=== PATIENT | male | born 1975 | race Caucasian/White ===

== ENCOUNTER 2020-08-02 10:10 | Outpatient (REF) | payer MEDICAID, SELFPAY | END 2020-08-02 10:11 | disposition home or self-care (01) | LOC: HO.LAB 10:10 | PROVIDERS: Visit Provider Internal Medicine | DX: Z20.822 Contact with and (suspected) exposure to COVID-19 (principal) | CPT/HCPCS: 36415; C9803; U0003 ==

== ENCOUNTER 2020-08-02 11:36 | Emergency (ER) | payer MEDICAID, SELFPAY ==
[2020-08-02 12:55] VITALS: BP 133/69; PULSE 68; RESP 14; TEMP 36; O2SAT 99
--- NOTE | 2020-08-02 13:20 | ED.NAVMDI ---
HPI - Nausea/Vomiting/Diarrhea General Chief complaint: Nausea/Vomiting/Diarrhea Stated complaint: covid symptoms Time Seen by Provider: 08/02/20 12:57 Source: patient Mode of arrival: ambulatory Limitations: no limitations History of Present Illness MD elicited complaint: nausea and vomiting Pertinent past history: other (COVID exposure) Onset (ago): day(s) (4) Description of vomiting: food contents and watery Associated nausea: Yes Associated abdominal pain: No Severity: moderate Exacerbating factors: eating Relieving factors: none Context: sick contacts (daughter has covid similar symptoms, girlfriend has similar symptoms) Associated symptoms: cough, fever/chills, loss of appetite, malaise and nausea/vomiting Related Data Previous Rx's Medication Instructions Recorded ondansetron 4 mg PO Q8H PRN #20 tab 08/02/20 Allergies Allergy/AdvReac Type Severity Reaction Status Date / Time No Known Allergies Allergy Unverified 04/08/20 14:50 [No Known Allergies*] Review of Systems Review of Systems: Constitutional : No Weight loss, No Fever, No Chills ENT/Mouth : No sore throat, No Rhinorrhea Eyes: No Swelling, No Redness Cardiovascular : No Chest Pain, No SOB, NoEdema Respiratory : No Cough, No Sputum, No Wheezing Gastrointestinal : Positive Nausea, Positive Vomiting, positive Diarrhea, no abdominal Pain, No Hematochezia, No Melena Genitourinary : No Dysuria, No Urinary Frequency, No Hematuria, No Urgency Musculoskeletal : No joint pain, No Myalgias, No Joint Swelling Skin : No Skin Lesions, No rash Neuro : No Weakness, No Numbness, No Dizziness, No Headache Psych : No Anxiety/Panic, No Depression Heme/Lymph: No Bruising, No Lymphadenopathy Endocrine : No Polyuria, No Polydipsia All other systems reviewed and are negative. Gastrointestinal: Gastrointestinal: Reports nausea PMFSH Past Medical History Attestation statement: The following information was validated with the patient. Medical History Substance abuse Social History Social History Smoking Status: Current every day smoker Use of substances other than those prescribed or required for medical reasons: Yes Advance Directives: No Advance Directives Information Provided: No Physical Exam Vital Signs: Vital Signs: Last Vital Signs Temp 96.8 F 08/02/20 12:55 Pulse 68 08/02/20 12:55 Resp 14 08/02/20 12:55 BP 133/69 08/02/20 12:55 Pulse Ox 99 08/02/20 12:55 Appearance: Alert. Oriented X3. No acute distress. Eyes: Pupils equal, round and reactive to light. ENT: Pharynx normal. Neck: Normal inspection. Neck supple. CVS: Normal heart rate and rhythm. Pulses normal. Respiratory: No respiratory distress. Breath sounds normal. Abdomen: Soft and non-tender. Skin: Skin warm and dry. Normal skin color. Normal skin turgor. Extremities: No lower extremity edema. No calf ttp Neuro: Oriented X 3. No motor deficit. No sensory deficit. MDM - Nausea/Vomiting/Diarrhea MDM Narrative Medical decision making narrative: 45 yo male with no sig history will need labs, gentle hydration overall not toxic, pending COVID swab already Discharge Plan Discharge Clinical Impression: Vomiting Qualifiers: Vomiting type: unspecified Vomiting Intractability: non-intractable Nausea presence: with nausea Qualified Code(s): R11.2 - Nausea with vomiting, unspecified Patient Disposition: Home, Self-Care Instructions: Acute Nausea and Vomiting (ED) Additional Instructions: return to ED for any worsening symptoms or concerns you were tested for COVID we will call you with results in 2 to 4 days, wear a mask, socially distance Prescriptions: New ondansetron 4 mg tablet,disintegrating 4 mg PO Q8H PRN (Reason: nausea and vomiting) Qty: 20 RF: 0
[2020-08-02 14:36] VITALS: BP 170/97; PULSE 92; RESP 18; TEMP 36.1; O2SAT 99; BMI 30.5
[2020-08-02] MEDS: 0.9 % Sodium Chloride 1,000 ML 999 ML IVCONT ×2 (14:50→16:09)
[2020-08-02 15:05] LABS: Basophils Percent Auto 0.2 % (0-2); Hemoglobin 19.5 g/dl (14.0-18.0); Imm Gran Abs Auto 0.05 X10*3/uL (0.00-0.03); Imm Gran Pct Auto 0.4 % (0.0-0.4); Lymphocytes Absolute Auto 0.7 X10*3/uL (1.2-4.9); Lymphocytes Percent Auto 5.3 % (20-40); MANUAL DIFF FLAG SCAN; Mean Corpuscular HGB Conc 35.2 g/dl (31.0-36.0); Mean Corpuscular Hemoglobin 30.5 pg (27.0-33.0); Mean Corpuscular Volume 86.7 fL (80-98); Mean Platelet Volume 10.3 fL (9.4-12.4); Monocytes Absolute Auto 0.8 X10*3/uL (0.1-1.2); Monocytes Percent Auto 6.8 % (2-11); Neutrophils Absolute Auto 10.8 X10*3/uL (2.0-8.3); Neutrophils Percent Auto 87.3 % (45-73); Platelet Count 446 X10*3/uL (160-400); Red Blood Count 6.39 X10*6/uL (4.60-5.80); Red Cell Distribution Width 12.3 % (11.0-16.0); SCAN SMEAR FLAG 1; White Blood Count 12.4 X10*3/uL (4.8-10.8)
[2020-08-02 15:16] LABS: Hematocrit 55.4 % (42-52)
[2020-08-02 15:33] VITALS: BP 162/60; PULSE 88; RESP 14; TEMP 36.1; O2SAT 99
[2020-08-02 15:37] LABS: Anion Gap 17 (12-20); Blood Urea Nitrogen 20 mg/dL (9-16); Calcium 11.7 mg/dL (8.4-10.2); Carbon Dioxide 33 mmol/L (22-29); Chloride 96 mmol/L (96-108); Creatinine Clr Calc Pharmacy 84.4; Estimated Glomerular Filt Rate 56; Glucose Random 152 mg/dL (60-115); Potassium 4.4 mmol/l (3.3-5.1); Sodium 142 mmol/L (135-145)
[2020-08-02 15:38] LABS: SLIDE REVIEW VERIFIED
== END 2020-08-02 16:39 | disposition home or self-care (01) ==
PROVIDERS: Emergency Provider Emergency Medicine
DX: R11.2 Nausea with vomiting, unspecified (principal); F17.200 Nicotine dependence, unspecified, uncomplicated; F19.10 Other psychoactive substance abuse, uncomplicated
CPT/HCPCS: 36415; 80048; 85025; 96360; 96361; 99283

== ENCOUNTER 2020-08-08 20:31 | Inpatient (IN) | payer MEDICAID, SELFPAY ==
[2020-08-08 21:19] VITALS: BP 156/101; PULSE 103; RESP 19; TEMP 37.7; O2SAT 97; BMI 30.5
--- NOTE | 2020-08-08 22:13 | XR_ITS ---
EXAMINATION: XR CHEST CLINICAL INFORMATION: Shortness of breath, Covid positive COMPARISON: None TECHNIQUE: Frontal view of the chest was obtained. FINDINGS: Minimal left basilar infiltration. No gross ground glass opacities on either side lung iqbal. No significant abnormality is otherwise noted involving the heart, lungs, mediastinum, bony thorax or soft tissues. XR/XR chest 1V IMPRESSION: Minor left basilar airspace disease consistent with presumably pneumonia.
--- NOTE | 2020-08-08 22:14 | ECG_ITS ---
Test Reason : DYSPNEA Blood Pressure : / mmHG Vent. Rate : 104 BPM Atrial Rate : 104 BPM P-R Int : 134 ms QRS Dur : 076 ms QT Int : 326 ms P-R-T Axes : 047 010 006 degrees QTc Int : 428 ms Sinus tachycardia Otherwise normal ECG No previous ECGs available Referred By: Beatrice Goodwin Electronically Signed By:SARAH GRACE
[2020-08-08] MEDS: Aspirin Enteric Coated 325 MG TABLET.DR PO (22:30)
[2020-08-08 22:39] LABS: MANUAL DIFF FLAG NO
[2020-08-08 22:40] LABS: Basophils Percent Auto 0.2 % (0-2); Eosinophils Percent Auto 0.3 % (0-4); Hematocrit 46.3 % (42-52); Imm Gran Abs Auto 0.08 X10*3/uL (0.00-0.03); Imm Gran Pct Auto 0.6 % (0.0-0.4); Lymphocytes Percent Auto 15.4 % (20-40); Mean Corpuscular HGB Conc 34.6 g/dl (31.0-36.0); Mean Corpuscular Hemoglobin 30.5 pg (27.0-33.0); Mean Corpuscular Volume 88.4 fL (80-98); Mean Platelet Volume 10.3 fL (9.4-12.4); Monocytes Percent Auto 7.9 % (2-11); Neutrophils Absolute Auto 9.6 X10*3/uL (2.0-8.3); Neutrophils Percent Auto 75.6 % (45-73); Platelet Count 381 X10*3/uL (160-400); Red Blood Count 5.24 X10*6/uL (4.60-5.80); Red Cell Distribution Width 11.9 % (11.0-16.0); White Blood Count 12.7 X10*3/uL (4.8-10.8)
[2020-08-08 22:42] LABS: Glucose Urine UA 100 MG/DL (NEG); Leukocyte Esterase Urine NEG (NEG); Nitrite Urine NEG (NEG); PH 6.5 (5.0-8.0); Specific Gravity - Urine 1.015 (1.005-1.025); Urine Blood 1+ (NEG); Urine Ketones NEG (NEG); Urine Protein NEG (NEG-TRACE)
[2020-08-08 22:44] LABS: Appearance Urine CLEAR; Color Urine YELLOW
[2020-08-08 22:48] LABS: WBC Urine 0 /HPF (0-4)
--- NOTE | 2020-08-08 22:52 | ED_ITS ---
HPI - General Adult General Chief complaint: Abdominal Pain Stated complaint: Flank Pain Time Seen by Provider: 08/08/20 21:32 Source: patient Mode of arrival: ambulatory Limitations: no limitations History of Present Illness HPI narrative: Constitutional : No Weight loss, No Fever, No Chills, No Night Sweats, No Fatigue, No Malaise ENT/Mouth : No Hearing loss, No Ear Pain, No Nasal Congestion, No Sinus Pain, No Hoarseness, No sore throat, No Rhinorrhea, No Swallowing Difficulty Eyes: No Eye Pain, No Swelling, No Redness, No Foreign Body, No Discharge, No Vision Changes Cardiovascular : No Chest Pain, No SOB, No Dyspnea on Exertion, No Orthopnea, No Edema, No Palpitations Respiratory : No Cough, No Sputum, No Wheezing, No Smoke Exposure, No Dyspnea Gastrointestinal : No Nausea, No Vomiting, No Diarrhea, No Constipation, No abdominal Pain, No Hematochezia, No Melena Genitourinary : no irregular bleeding, No Dysuria, No Urinary Frequency, No Hematuria, No Urinary Incontinence, No Urgency, No Flank Pain, No Urinary Flow Changes, No Hesitancy Musculoskeletal : No joint pain, No Myalgias, No Joint Swelling Skin : No Skin Lesions, No rash Neuro : No Weakness, No Numbness, No Paresthesias, No Loss of Consciousness, No Dizziness, No Headache Psych : No Anxiety/Panic, No Depression, No SI/HI/AH/VH, No Social Issues, Heme/Lymph: No Bruising, No Bleeding,No Lymphadenopathy Endocrine : No Polyuria, No Polydipsia, No Temperature IntolerancePatient comes to emergency room complaining of left-sided chest pain. Patient states that he tested positive for COVID-19 on August 01. Patient states he has been doing well until today when he started having pain on his left chest, under his armpit. Patient states it is worse with movement and with deep inspiration. Patient denies shortness of breath MD complaint: Left-sided rib pain Related Data Previous Rx's Medication Instructions Recorded ondansetron 4 mg PO Q8H PRN #20 tab 08/02/20 Allergies Allergy/AdvReac Type Severity Reaction Status Date / Time No Known Allergies Allergy Unverified 04/08/20 14:50 [No Known Allergies*] Review of Systems Review of Systems: Constitutional : No Weight loss, No Fever, No Chills, No Night Sweats, No Fatigue, No Malaise ENT/Mouth : No Hearing loss, No Ear Pain, No Nasal Congestion, No Sinus Pain, No Hoarseness, No sore throat, No Rhinorrhea, No Swallowing Difficulty Eyes: No Eye Pain, No Swelling, No Redness, No Foreign Body, No Discharge, No Vision Changes Cardiovascular : Complaining of left-sided rib/chest pain under his armpit, radiating to the left arm, No SOB, No Dyspnea on Exertion, No Orthopnea, No Edema, No Palpitations Respiratory : No Cough, No Sputum, No Wheezing, No Smoke Exposure, No Dyspnea Gastrointestinal : No Nausea, No Vomiting, No Diarrhea, No Constipation, No abdominal Pain, No Hematochezia, No Melena Genitourinary : no irregular bleeding, No Dysuria, No Urinary Frequency, No Hematuria, No Urinary Incontinence, No Urgency, No Flank Pain, No Urinary Flow Changes, No Hesitancy Musculoskeletal : No joint pain, No Myalgias, No Joint Swelling Skin : No Skin Lesions, No rash Neuro : No Weakness, No Numbness, No Paresthesias, No Loss of Consciousness, No Dizziness, No Headache Psych : No Anxiety/Panic, No Depression, No SI/HI/AH/VH, No Social Issues, Heme/Lymph: No Bruising, No Bleeding,No Lymphadenopathy Endocrine : No Polyuria, No Polydipsia, No Temperature Intolerance [facility] Past Medical History Medical History (Updated 08/09/20 @ 02:57 by Beatrice Goodwin MD) COVID-19 Substance abuse Social History Social History Alcohol intake: never Smoking Status: Current every day smoker Smoked in Last 30 Days: No Use of substances other than those prescribed or required for medical reasons: No Advance Directives: No Advance Directives Information Provided: No Physical Exam Vital Signs: Vital Signs: Last Vital Signs Temp 99.8 F 08/08/20 21:19 Pulse 103 H 08/08/20 21:19 Resp 19 08/08/20 21: BP 156/101 H 08/08/20 21: Pulse Ox 97 08/08/20 21: Body Mass Index 30.5 Appearance: Alert. Oriented X3. No acute distress. Eyes: Pupils equal, round and reactive to light. ENT: Pharynx normal. Neck: Normal inspection. Neck supple. No lymph nodes noted. No crepitus CVS: Normal heart rate and rhythm. Pulses normal. Normal S1 and S2, reproducible chest pain on palpation over the ribs on the left side Respiratory: No respiratory distress. Breath sounds normal. No Wheezing. No rales Abdomen: Soft and nontender. No rigidity. No distention. good BS x4 Skin: Skin warm and dry. Normal skin color. Normal skin turgor. Extremities: No lower extremity edema. No lower extremity edema. No Lacerations. No Rash Neuro: Oriented X 3. No motor deficit. No sensory deficit. Moving all extermities. No slurred speech. Course Course Course Narrative: I discussed with the patient that he has bilateral pulmonary embolisms, and a new left renal mass that was found incidentally on CT scan. I discussed the above-mentioned with our hospitalist Dr. Bedolla, patient being admitted. Patient received in the ED 1st dose of Lovenox 1 milligram/kilogram. Patient's vitals are stable Medical Decision Making Lab Data Result diagrams: 08/08/20 22:15 08/08/20 22:15 Labs: Lab Results 08/08/20 08/08/20 08/08/20 Range/Units 22:00 22:15 22:15 WBC 12.7 H (4.8-10.8) X10*3/uL RBC 5.24 (4.60-5.80) X10*6/uL Hgb 16.0 (14.0-18.0) g/dl Hct 46.3 (42-52) % MCV 88.4 (80-98) fL MCH 30.5 (27.0-33.0) pg MCHC 34.6 (31.0-36.0) g/dl RDW 11.9 (11.0-16.0) % Plt Count 381 (160-400) X10*3/uL MPV 10.3 (9.4-12.4) fL Immature Gran % (Auto) 0.6 H (0.0-0.4) % Neut % (Auto) 75.6 H (45-73) % Lymph % (Auto) 15.4 L (20-40) % Toole % (Auto) 7.9 (2-11) % Eos % (Auto) 0.3 (0-4) % Baso % (Auto) 0.2 (0-2) % Lymph # (Auto) 2.0 (1.2-4.9) X10*3/uL Toole # (Auto) 1.0 (0.1-1.2) X10*3/uL Eos # (Auto) 0.0 (0.0-0.4) X10*3/uL Baso # (Auto) 0.0 (0.0-0.2) X10*3/uL Abs Immat Gran (auto) 0.08 H (0.00-0.03) X10*3/uL Absolute Neuts (auto) 9.6 H (2.0-8.3) X10*3/uL Absolute Nucleated RBC 0.000 (0.0-0.012) X10*3/uL Nucleated RBC % (auto) 0.0 (0.0-0.2) /100WBC D-Dimer NG/ML Hold Blue Top SEE NOTE Sodium (135-145) mmol/L Potassium (3.3-5.1) mmol/l Chloride (96-108) mmol/L Carbon Dioxide (22-29) mmol/L Anion Gap (12-20) BUN (9-16) mg/dL Creatinine (0.5-1.4) mg/dL Estim Creat Clear Calc Estimated GFR Random Glucose (60-115) mg/dL Calcium (8.4-10.2) mg/dL Total Bilirubin (0.0-1.0) mg/dL AST (5-37) U/L ALT (0-40) U/L Alkaline Phosphatase (39-117) U/L Troponin I High Sens (<3.5-35.0) ng/L Total Protein (6.5-8.0) g/dL Albumin (3.5-5.0) g/dL Urine Color YELLOW Urine Appearance CLEAR Urine pH 6.5 (5.0-8.0) Ur Specific Sparkill 1.015 (1.005-1.025) Urine Protein NEG (NEG-TRACE) MG/DL Urine Glucose (UA) 100 H (NEG) MG/DL Urine Ketones NEG (NEG) MG/DL Urine Blood 1+ H (NEG) Urine Nitrite NEG (NEG) Ur Leukocyte Esterase NEG (NEG) Urine RBC 5-9 H (0) /HPF Urine WBC 0 (0-4) /HPF Ur Squamous Epith Cells NONE /LPF Urine Bacteria NONE /LPF 08/08/20 08/08/20 08/08/20 Range/Units 22:15 22:34 22:36 WBC Cancelled (4.8-10.8) X10*3/uL RBC Cancelled (4.60-5.80) X10*6/uL Hgb Cancelled (14.0-18.0) g/dl Hct Cancelled (42-52) % MCV Cancelled (80-98) fL MCH Cancelled (27.0-33.0) pg MCHC Cancelled (31.0-36.0) g/dl RDW Cancelled (11.0-16.0) % Plt Count Cancelled (160-400) X10*3/uL MPV Cancelled (9.4-12.4) fL Immature Gran % (Auto) Cancelled (0.0-0.4) % Neut % (Auto) Cancelled (45-73) % Lymph % (Auto) Cancelled (20-40) % Toole % (Auto) Cancelled (2-11) % Eos % (Auto) Cancelled (0-4) % Baso % (Auto) Cancelled (0-2) % Lymph # (Auto) Cancelled (1.2-4.9) X10*3/uL Toole # (Auto) Cancelled (0.1-1.2) X10*3/uL Eos # (Auto) Cancelled (0.0-0.4) X10*3/uL Baso # (Auto) Cancelled (0.0-0.2) X10*3/uL Abs Immat Gran (auto) Cancelled (0.00-0.03) X10*3/uL Absolute Neuts (auto) Cancelled (2.0-8.3) X10*3/uL Absolute Nucleated RBC Cancelled (0.0-0.012) X10*3/uL Nucleated RBC % (auto) Cancelled (0.0-0.2) /100WBC D-Dimer NG/ML Hold Blue Top Sodium 139 (135-145) mmol/L Potassium 3.8 (3.3-5.1) mmol/l Chloride 98 (96-108) mmol/L Carbon Dioxide 30 H (22-29) mmol/L Anion Gap 15 (12-20) BUN 11 (9-16) mg/dL Creatinine 1.30 (0.5-1.4) mg/dL Estim Creat Clear Calc 89.6 Estimated GFR 60 Random Glucose 109 (60-115) mg/dL Calcium 9.1 D (8.4-10.2) mg/dL Total Bilirubin 0.3 (0.0-1.0) mg/dL AST 15 (5-37) U/L ALT 32 (0-40) U/L Alkaline Phosphatase 87 (39-117) U/L Troponin I High Sens < 3.5 (<3.5-35.0) ng/L Total Protein 8.4 H (6.5-8.0) g/dL Albumin 4.6 (3.5-5.0) g/dL Urine Color Urine Appearance Urine pH (5.0-8.0) Ur Specific Sparkill (1.005-1.025) Urine Protein (NEG-TRACE) MG/DL Urine Glucose (UA) (NEG) MG/DL Urine Ketones (NEG) MG/DL Urine Blood (NEG) Urine Nitrite (NEG) Ur Leukocyte Esterase (NEG) Urine RBC (0) /HPF Urine WBC (0-4) /HPF Ur Squamous Epith Cells /LPF Urine Bacteria /LPF 08/08/20 Range/Units 22:36 WBC (4.8-10.8) X10*3/uL RBC (4.60-5.80) X10*6/uL Hgb (14.0-18.0) g/dl Hct (42-52) % MCV (80-98) fL MCH (27.0-33.0) pg MCHC (31.0-36.0) g/dl RDW (11.0-16.0) % Plt Count (160-400) X10*3/uL MPV (9.4-12.4) fL Immature Gran % (Auto) (0.0-0.4) % Neut % (Auto) (45-73) % Lymph % (Auto) (20-40) % Toole % (Auto) (2-11) % Eos % (Auto) (0-4) % Baso % (Auto) (0-2) % Lymph # (Auto) (1.2-4.9) X10*3/uL Toole # (Auto) (0.1-1.2) X10*3/uL Eos # (Auto) (0.0-0.4) X10*3/uL Baso # (Auto) (0.0-0.2) X10*3/uL Abs Immat Gran (auto) (0.00-0.03) X10*3/uL Absolute Neuts (auto) (2.0-8.3) X10*3/uL Absolute Nucleated RBC (0.0-0.012) X10*3/uL Nucleated RBC % (auto) (0.0-0.2) /100WBC D-Dimer 344 NG/ML Hold Blue Top Sodium (135-145) mmol/L Potassium (3.3-5.1) mmol/l Chloride (96-108) mmol/L Carbon Dioxide (22-29) mmol/L Anion Gap (12-20) BUN (9-16) mg/dL Creatinine (0.5-1.4) mg/dL Estim Creat Clear Calc Estimated GFR Random Glucose (60-115) mg/dL Calcium (8.4-10.2) mg/dL Total Bilirubin (0.0-1.0) mg/dL AST (5-37) U/L ALT (0-40) U/L Alkaline Phosphatase (39-117) U/L Troponin I High Sens (<3.5-35.0) ng/L Total Protein (6.5-8.0) g/dL Albumin (3.5-5.0) g/dL Urine Color Urine Appearance Urine pH (5.0-8.0) Ur Specific Sparkill (1.005-1.025) Urine Protein (NEG-TRACE) MG/DL Urine Glucose (UA) (NEG) MG/DL Urine Ketones (NEG) MG/DL Urine Blood (NEG) Urine Nitrite (NEG) Ur Leukocyte Esterase (NEG) Urine RBC (0) /HPF Urine WBC (0-4) /HPF Ur Squamous Epith Cells /LPF Urine Bacteria /LPF Imaging Data Chest x-ray: Radiologist's impression: FINDINGS: Minimal left basilar infiltration. No gross ground glass opacities on either side lung iqbal. No significant abnormality is otherwise noted involving the heart, lungs, mediastinum, bony thorax or soft tissues. XR/XR chest 1V IMPRESSION: Minor left basilar airspace disease consistent with presumably pneumonia. ECG Data Attestation: I personally reviewed and interpreted this ECG as follows: (A rate 104, QTC 428, no ST segment depression or elevation, no T-wave inversion, EKG per quality, has a lot of artifact) Critical Care Time Critical Care Time Total Critical Care Time: 60 Discharge Plan Discharge Clinical Impression: COVID-19, Bilateral pulmonary embolism, Left renal mass Patient Disposition: Admitted As Inpatient Prescriptions: No Action ondansetron 4 mg tablet,disintegrating 4 mg PO Q8H PRN (Reason: nausea and vomiting) Qty: 20 RF: 0
[2020-08-08 23:06] LABS: D Dimer 344 NG/ML
[2020-08-08 23:07] LABS: Alanine Aminotransferase 32 U/L (0-40); Albumin Level 4.6 g/dL (3.5-5.0); Alkaline Phosphatase 87 U/L (39-117); Anion Gap 15 (12-20); Aspartate Amino Transferase 15 U/L (5-37); Bilirubin Total 0.3 mg/dL (0.0-1.0); Blood Urea Nitrogen 11 mg/dL (9-16); Calcium 9.1 mg/dL (8.4-10.2); Carbon Dioxide 30 mmol/L (22-29); Chloride 98 mmol/L (96-108); Creatinine Clr Calc Pharmacy 89.6; Estimated Glomerular Filt Rate 60; Glucose Random 109 mg/dL (60-115); Potassium 3.8 mmol/l (3.3-5.1); Sodium 139 mmol/L (135-145); Total Protein 8.4 g/dL (6.5-8.0)
[2020-08-08 23:31] LABS: Troponin-I High Sensitivity < 3.5 ng/L (<3.5-35.0)
[2020-08-09] VITALS (7 sets, daily range): BP systolic 130–169; BP diastolic 82–100; PULSE 78–100; RESP 14–24; TEMP 36.9–37.1; O2SAT 96–98; BMI 29.6
--- NOTE | 2020-08-09 | CT_ITS ---
EXAMINATION: CT ANGIOGRAM OF THE CHEST WITH AND WITHOUT CONTRAST (CT PULMONARY ANGIOGRAM FOR PE) CT ABDOMEN PELVIS WITH CONTRAST CLINICAL INFORMATION: Reason for Exam sob, L CP, tachycardic, elevated dimmer COMPARISON: No pertinent prior studies are available for comparison. TECHNIQUE: Prior to contrast administration, noncontrast localization images were obtained. Subsequently, multidetector volumetric imaging was performed from the thoracic inlet to the pubic symphysis through the chest, abdomen, and pelvis following the administration of 80 mL Omnipaque 350 intravenous contrast. Images through the chest were obtained during the pulmonary arterial phase of enhancement. Delayed images of the abdomen and pelvis were obtained. No contrast reaction reported Sagittal, coronal, and MIP oblique sagittal (through the chest only) reformatted images were obtained on the CT workstation, uploaded to PACS, and reviewed. Total exam dose-length product: 694 and 390 mGy-cm This CT examination was performed using dose optimization techniques as appropriate, variously including the following: *Automated exposure control *Adjustment of mA and/or kV according to patient size (this includes techniques or standardized protocols for targeted exams where dose is matched to indication/reason for exam; i.e. extremities or head) *Use of iterative reconstruction technique FINDINGS: QUALITY OF STUDY/CONTRAST BOLUS: Satisfactory. PULMONARY ARTERIES: A few small subsegmental and subsegmental pulmonary emboli are identified, notably in the right upper lobe apical segment and in the left lower lobe, basilar segments. Central pulmonary arteries are normal in caliber. THORACIC AORTA: No aneurysm or dissection. LUNG: Patchy reticular airspace opacities are present in the lung bases, likely corresponding to atelectasis. A few subtle foci of consolidation in the left lower lobe at the base correspond to early pulmonary infarcts. Central airways are clear. No appreciable pulmonary nodules. PLEURA: No pleural effusion or pneumothorax. MEDIASTINUM: Normal heart size. No pericardial effusion. No hilar or mediastinal lymphadenopathy. No evidence of septal bowing or right heart strain. CHEST WALL/AXILLA: No axillary or internal mammary lymphadenopathy. ABDOMEN/PELVIS: LIVER, GALLBLADDER AND BILIARY TREE: The liver is normal in size, shape, and attenuation. No focal hepatic lesion or biliary ductal dilatation is present. A 2 cm gallstone is present within the contracted gallbladder. No evidence of acute cholecystitis. PANCREAS: Normal; no mass or surrounding fluid. SPLEEN: Normal size. No focal lesion. ADRENAL GLANDS: Normal; no mass. KIDNEYS AND URETERS: At the upper pole of the left kidney, there is a 7 x 4.2 x 5.3 cm lobular complex lesion with a few internal calcifications, most concerning for a primary renal neoplasm. Cystic foci may be present centrally. This lesion extends through the perirenal fat and abuts the left hemidiaphragm posteriorly. No appreciable extension into the renal vein. No additional renal lesions are identified on these images. Contrast material is present within the renal collecting systems on the postcontrast images without appreciable ureteral/urothelial lesions. GASTROINTESTINAL TRACT: Stomach, small bowel, and colon are normal in caliber. No bowel wall thickening or surrounding inflammatory changes. Appendix is normal. No intraperitoneal free fluid or free air. ABDOMINAL WALL: No significant hernia is appreciated. LYMPHOVASCULAR STRUCTURES: No lymphadenopathy. The aorta is unremarkable. BLADDER: No focal mass or wall thickening seen. No bladder calculi. PELVIC VISCERA: Unremarkable. OSSEOUS STRUCTURES: No acute or suspicious osseous abnormality. Small nodes are present of the inferior endplates of L4 and L5. CT/CT angio chest PE protocol IMPRESSION: 1. A few small segmental and subsegmental acute pulmonary emboli. No evidence of right heart strain or elevated pulmonary arterial pressures. A few subtle patchy foci of airspace opacification in the left lung base of correspond to atelectasis, though areas of early pulmonary infarction cannot be excluded. 2. A 7 cm lobular complex exophytic mass lesion at the upper pole of the left kidney, most concerning for a primary renal malignancy. 3. Cholelithiasis without evidence of acute cholecystitis. VTE: positive This critical result was discussed by telephone with Dr. Beatrice Goodwin at 08/09/2020 2:30 AM.
[2020-08-09] MEDS: iohexoL 350 MG/ML 100 ML INFUS..BTL 65 ML IV (01:31)
[2020-08-09] MEDS: Morphine Sulfate 4 MG/ML CARTRIDGE 3 MG IVPUSH ×2 (03:10→20:25)
[2020-08-09] MEDS: Enoxaparin Sodium 100 MG/ML SYRINGE SUBCUT ×3 (03:10→21:32)
--- NOTE | 2020-08-09 03:53 | P.HPHOSP_ITS ---
History of Present Illness Date of Service: 08/09/20 Chief Complaint: Left sided chest and abdominal pain. 45 year old man recently diagnosed with COVID who has been quarantining at home. He presented today as he had worsening left flank, abdominal, and chest pain. Pain is pleuritic in nature and sharp with breathing. States is in left side of lower chest and upper abdomen and radiates to his shoulder. No dyspnea or cough. No hemoptysis. He had fevrs/chills with COVID but those symptoms improved. He also had nausea nd diarrhea but those symptoms resolved 2 days ago. He has never had pain like this before. In ED he had CT angio done that showed PE in right upper and left lower lobes. Also had CT abdomen that showed mass in left kidney. He states had episode of hematuria last summer that resolved and he did not seek medical care for it as he perceived it was due to exertion/work. He has not seen any hematuria since then. Review of Systems Constitutional: Comments: No fevers or chills currently Eyes: Comments: no vision changes ENT: Comments: No difficulty swallowing Cardiovascular: Comments: Chest pain is left sided and pleuritic Respiratory: Comments: No dyspnea or cough Gastrointestinal: Comments: Some abd pain. No nausea or vomiting. Genitourinary: Comments: No hematuria Musculoskeletal: Comments: Pain left ribcage and flank Neurologic: Comments: No weakenss or numbness Psychiatric: Comments: No anxiety or agitatn Hematologic/Lymphatic: Comments: No bruising [facility] Medical History COVID-19 Substance abuse Pertinent family history: Fam hx CAD and stroke in father, no fam hx cancers or blood clots Family history: reviewed and not pertinent Social History Alcohol intake: never Smoking Status: Current every day smoker Smoked in Last 30 Days: No Use of substances other than those prescribed or required for medical reasons: No Advance Directives: No Advance Directives Information Provided: No Meds Allergies Allergy/AdvReac Type Severity Reaction Status Date / Time No Known Allergies Allergy Unverified 04/08/20 14:50 [No Known Allergies*] Physical Exam Vital Signs and Narrative: Vital Signs: Last Vital Signs Temp 99.8 F 08/08/20 21:19 Pulse 103 H 01/17/21 21:19 Resp 19 08/08/20 21:19 BP 156/101 H 08/08/20 21:19 Pulse Ox 97 08/08/20 21:19 Body Mass Index 30.5 Const: General: cooperative, comfortable and no acute distress Orientation/consciousness: patient oriented x3 HENMT: Head: Yes normal to inspection Mouth: Normal oral and palatal mucosa present Eyes: Other: No scleral icterus or conjunctival injections Neck: Other: Supple, no adenopathy Resp: Other: Normal resp effort, no insp crackles or exp wheezes Cardio: Rate: regular rate Rhythm: regular rhythm Heart sounds: S1 normal heart sound present and S2 normal heart sound present GI: Other: Abdomen soft, nondistended. Mildly tender to palpation in epigastrum. Inspection: Yes normal to inspection : General: Yes CVA tenderness Back/Spine/Pelvis: Other: left CVA tenderness Back: CVA tenderness Skin: General skin exam: no rashes or lesions noted Neuro: General: patient oriented x3 Extrem: Other: No lower ext edema Psych: Other: Not anxious or agitated Results Labs CBC and Chem 7: 08/08/20 22:15 08/08/20 22:15 Labs: Laboratory Results - last 24 hr 08/08/20 08/08/20 08/08/20 22:00 22:15 22:15 MCV 88.4 MCH 30.5 MCHC 34.6 RDW 11.9 Plt Count 381 MPV 10.3 Immature Gran % (Auto) 0.6 H Neut % (Auto) 75.6 H Lymph % (Auto) 15.4 L [place] % (Auto) 7.9 Eos % (Auto) 0.3 Baso % (Auto) 0.2 Lymph # (Auto) 2.0 [place] # (Auto) 1.0 Eos # (Auto) 0.0 Baso # (Auto) 0.0 Abs Immat Gran (auto) 0.08 H Absolute Neuts (auto) 9.6 H Absolute Nucleated RBC 0.000 Nucleated RBC % (auto) 0.0 D-Dimer Hold Blue Top SEE NOTE Anion Gap Estim Creat Clear Calc Estimated GFR Random Glucose Calcium Total Bilirubin AST ALT Alkaline Phosphatase Troponin I High Sens Total Protein Albumin Urine Color YELLOW Urine Appearance CLEAR Urine pH 6.5 Ur Specific [place] 1.015 Urine Protein NEG Urine Glucose (UA) 100 H Urine Ketones NEG Urine Blood 1+ H Urine Nitrite NEG Ur Leukocyte Esterase NEG Urine RBC 5-9 H Urine WBC 0 Ur Squamous Epith Cells NONE Urine Bacteria NONE 08/08/20 08/08/20 08/08/20 22:15 22:34 22:36 MCV Cancelled MCH Cancelled MCHC Cancelled RDW Cancelled Plt Count Cancelled MPV Cancelled Immature Gran % (Auto) Cancelled Neut % (Auto) Cancelled Lymph % (Auto) Cancelled [place] % (Auto) Cancelled Eos % (Auto) Cancelled Baso % (Auto) Cancelled Lymph # (Auto) Cancelled [place] # (Auto) Cancelled Eos # (Auto) Cancelled Baso # (Auto) Cancelled Abs Immat Gran (auto) Cancelled Absolute Neuts (auto) Cancelled Absolute Nucleated RBC Cancelled Nucleated RBC % (auto) Cancelled D-Dimer Hold Blue Top Anion Gap 15 Estim Creat Clear Calc 89.6 Estimated GFR 60 Random Glucose 109 Calcium 9.1 D Total Bilirubin 0.3 AST 15 ALT 32 Alkaline Phosphatase 87 Troponin I High Sens < 3.5 Total Protein 8.4 H Albumin 4.6 Urine Color Urine Appearance Urine pH Ur Specific [place] Urine Protein Urine Glucose (UA) Urine Ketones Urine Blood Urine Nitrite Ur Leukocyte Esterase Urine RBC Urine WBC Ur Squamous Epith Cells Urine Bacteria 08/08/20 22:36 MCV MCH MCHC RDW Plt Count MPV Immature Gran % (Auto) Neut % (Auto) Lymph % (Auto) [place] % (Auto) Eos % (Auto) Baso % (Auto) Lymph # (Auto) [place] # (Auto) Eos # (Auto) Baso # (Auto) Abs Immat Gran (auto) Absolute Neuts (auto) Absolute Nucleated RBC Nucleated RBC % (auto) D-Dimer 344 Hold Blue Top Anion Gap Estim Creat Clear Calc Estimated GFR Random Glucose Calcium Total Bilirubin AST ALT Alkaline Phosphatase Troponin I High Sens Total Protein Albumin Urine Color Urine Appearance Urine pH Ur Specific [place] Urine Protein Urine Glucose (UA) Urine Ketones Urine Blood Urine Nitrite Ur Leukocyte Esterase Urine RBC Urine WBC Ur Squamous Epith Cells Urine Bacteria Imaging Radiologist's Impressions: Impressions Chest X-Ray 08/08/20 22:13 IMPRESSION: Minor left basilar airspace disease consistent with presumably pneumonia. Chest CTA 08/09/20 00:00 IMPRESSION: 1. A few small segmental and subsegmental acute pulmonary emboli. No evidence of right heart strain or elevated pulmonary arterial pressures. A few subtle patchy foci of airspace opacification in the left lung base of correspond to atelectasis, though areas of early pulmonary infarction cannot be excluded. 2. A 7 cm lobular complex exophytic mass lesion at the upper pole of the left kidney, most concerning for a primary renal malignancy. 3. Cholelithiasis without evidence of acute cholecystitis. VTE: positive This critical result was discussed by telephone with Dr. Beatrice Goodwin at 08/09/2020 2:30 AM. Abdomen/Pelvis CT 08/09/20 01:19 IMPRESSION: 1. A few small segmental and subsegmental acute pulmonary emboli. No evidence of right heart strain or elevated pulmonary arterial pressures. A few subtle patchy foci of airspace opacification in the left lung base of correspond to atelectasis, though areas of early pulmonary infarction cannot be excluded. 2. A 7 cm lobular complex exophytic mass lesion at the upper pole of the left kidney, most concerning for a primary renal malignancy. 3. Cholelithiasis without evidence of acute cholecystitis. VTE: positive This critical result was discussed by telephone with Dr. Beatrice Goodwin at 08/09/2020 2:30 AM. Assessment and Plan (1) COVID-19: Status: Acute (2) Bilateral pulmonary embolism: Status: Acute (3) Left renal mass: Status: Acute 45 year old man with COVID who presented with left sided abdominal and pleuritic chest pain. Found to have bilateral PE and left renal mass. Pulmonay embolism No fam hx blood clots. Likely related to COVID. Started on Lovenox in ED- continue for now. Renal mass Could be a malignancy. Patient informed of the mass. Urology consult placed for input. COVID Stable, not hypoxic. DVT proph SC Lovenox as above Code status Full code.
[2020-08-09] MEDS: Ketorolac Tromethamine 15 MG/ML VIAL IV ×2 (05:10→12:23)
[2020-08-09 06:12] LABS: Hematocrit 42.7 % (42-52); Hemoglobin 14.5 g/dl (14.0-18.0); Mean Corpuscular Hemoglobin 30.1 pg (27.0-33.0); Mean Corpuscular Volume 88.6 fL (80-98); Mean Platelet Volume 9.9 fL (9.4-12.4); Platelet Count 348 X10*3/uL (160-400); Red Blood Count 4.82 X10*6/uL (4.60-5.80); White Blood Count 10.5 X10*3/uL (4.8-10.8)
[2020-08-09 06:17] LABS: INTERNATIONAL NORM RATIO 1.2 (0.9-1.1); Prothrombin Time 14.6 SEC (10.8-13.0)
[2020-08-09 06:20] LABS: Partial Thromboplastin Time 32.2 SEC (24.1-38.0)
--- NOTE | 2020-08-09 08:02 | PC.NURSE ---
report taken from jennifer jackson pt resting in stretcher upon first contact. easily arousable, vss. given breakfast, ate all of meal. sitting up and watching tv att, nad. awaiting inpt bed assignment.
--- NOTE | 2020-08-09 08:27 | P.EN_ITS ---
Event Note Date of Service: 08/09/20 Event Note: Case discussed with Dr. Alejo from Hematology who recommended out patient follow-up after urology evaluation of the patient and biopsies if needed. Suggest keeping the patient on Lovenox until she can see him in the office for further workup.
--- NOTE | 2020-08-09 10:05 | PC.NURSE ---
pt medicated per emar, pt inquiring about mechanism of medication, educated on need for anticoagulants w pulmonary emboli. pt calm and cooperative, resting in stretcher att. wctm.
--- NOTE | 2020-08-09 12:31 | PC.NURSE ---
vss, pt updated on plan of care. awaiting lunch. medicated with prn for pain.
--- NOTE | 2020-08-09 15:19 | P.CNUR_ITS ---
History of Present Illness Consult details Consult date: 08/09/20 Narrative: Consultation regarding left renal mass This is a 45-year-old male. Been diagnosed with COVID on 08/01/2020. Has had slow deterioration with shortness of breath. Presented to the emergency room again 24 hours ago. Was found to have bilateral pulmonary embolism with COVID induced hypercoagulability. Is being treated for this. Start evaluation a CT scan Abdo pelvis was performed. A 5-6 cm mass was found on the left upper kidney. This appears to come down to below the level of hilum. Is suspicious for renal cell carcinoma. Discussed the diagnosis with the patient. Reassured him that renal cancer is slow growing and this is likely to have taken 5 years to have reached this point. His more pressing concern is recovering from COVID. Once he has recovered we can then plan laparoscopic nephrectomy. He can be seen as an outpatient and there is no emergent urologic issue currently. Review of Systems Review of Systems: Yes all other systems are reviewed and are negative PMFSH Past Medical History Medical History COVID-19 Substance abuse Family History Family history: reviewed and not pertinent Social History Social History Alcohol intake: never Smoking Status: Current every day smoker Smoked in Last 30 Days: No Use of substances other than those prescribed or required for medical reasons: No Advance Directives: No Advance Directives Information Provided: No Meds Allergies Allergy/AdvReac Type Severity Reaction Status Date / Time No Known Allergies Allergy Unverified 04/08/20 14:50 [No Known Allergies*] Physical Exam Vital Signs: Vital Signs: Last Vital Signs Temp 98.7 F 08/09/20 05:49 Pulse 80 08/09/20 12:19 Resp 14 08/09/20 07:28 BP 152/100 H 08/09/20 12:19 Pulse Ox 97 08/09/20 12:19 Body Mass Index 30.5 Const: General: cooperative, healthy appearing, comfortable and no acute distress Nutritional Appearance: average body habitus Orientation /consciousness: oriented to person, oriented to place and oriented to time Eyes: General: appearance normal, both eyes and all related structures Chest: Chest palpation & inspection: normal inspection of the chest Resp: Effort & Inspection: normal respiratory effort Cardio: Rate: regular rate GI: Inspection: Yes normal to inspection Skin: Hair: normal Neuro: General: oriented to person, oriented to place and oriented to time Extrem: General: Yes normal to inspection Results Labs Result diagrams: 08/09/20 05:57 08/08/20 22:15 Labs: Abnormal lab results 08/08/20 08/08/20 08/08/20 Range/Units 22:00 22:15 22:15 WBC 12.7 H (4.8-10.8) X10*3/uL Immature Gran % (Auto) 0.6 H (0.0-0.4) % Neut % (Auto) 75.6 H (45-73) % Lymph % (Auto) 15.4 L (20-40) % Abs Immat Gran (auto) 0.08 H (0.00-0.03) X10*3/uL Absolute Neuts (auto) 9.6 H (2.0-8.3) X10*3/uL PT (10.8-13.0) SEC INR (0.9-1.1) Carbon Dioxide 30 H (22-29) mmol/L Total Protein 8.4 H (6.5-8.0) g/dL Urine Glucose (UA) 100 H (NEG) MG/DL Urine Blood 1+ H (NEG) Urine RBC 5-9 H (0) /HPF 08/09/20 Range/Units 05:57 WBC (4.8-10.8) X10*3/uL Immature Gran % (Auto) (0.0-0.4) % Neut % (Auto) (45-73) % Lymph % (Auto) (20-40) % Abs Immat Gran (auto) (0.00-0.03) X10*3/uL Absolute Neuts (auto) (2.0-8.3) X10*3/uL PT 14.6 H (10.8-13.0) SEC INR 1.2 H (0.9-1.1) Carbon Dioxide (22-29) mmol/L Total Protein (6.5-8.0) g/dL Urine Glucose (UA) (NEG) MG/DL Urine Blood (NEG) Urine RBC (0) /HPF Short CBC 08/08/20 08/08/20 08/09/20 Range/Units 22:15 22:36 05:57 WBC 12.7 H Cancelled 10.5 (4.8-10.8) X10*3/uL Hgb 16.0 Cancelled 14.5 (14.0-18.0) g/dl Hct 46.3 Cancelled 42.7 (42-52) % Plt Count 381 Cancelled 348 (160-400) X10*3/uL BMP 08/08/20 22:15 Sodium 139 Potassium 3.8 Chloride 98 Carbon Dioxide 30 H BUN 11 Creatinine 1.30 Calcium 9.1 D Liver Function 08/08/20 Range/Units 22:15 Total Bilirubin 0.3 (0.0-1.0) mg/dL AST 15 (5-37) U/L ALT 32 (0-40) U/L Alkaline Phosphatase 87 (39-117) U/L Albumin 4.6 (3.5-5.0) g/dL Urine 08/08/20 Range/Units 22:00 Urine Color YELLOW Urine Appearance CLEAR Urine pH 6.5 (5.0-8.0) Ur Specific [place] 1.015 (1.005-1.025) Urine Protein NEG (NEG-TRACE) MG/DL Urine Glucose (UA) 100 H (NEG) MG/DL All other labs normal. KIDNEYS AND URETERS: At the upper pole of the left kidney, there is a 7 x 4.2 x 5.3 cm lobular complex lesion with a few internal calcifications, most concerning for a primary renal neoplasm. Cystic foci may be present centrally. This lesion extends through the perirenal fat and abuts the left hemidiaphragm posteriorly. No appreciable extension into the renal vein. No additional renal lesions are identified on these images. Contrast material is present within the renal collecting systems on the postcontrast images without appreciable ureteral/urothelial lesions. 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
[2020-08-09] MEDS: Famotidine 20 MG TABLET 40 MG PO (15:38)
[2020-08-09] MEDS: Ketorolac Tromethamine 30 MG/ML VIAL IVPUSH (20:25)
[2020-08-09] MEDS: 0.9 % Sodium Chloride Flush 3 ML SYRINGE IVFLUSH (21:33)
[2020-08-10] VITALS (7 sets, daily range): BP systolic 119–174; BP diastolic 81–96; PULSE 72–94; RESP 11–22; TEMP 36.8–37.5; O2SAT 92–97
[2020-08-10] MEDS: Morphine Sulfate 4 MG/ML CARTRIDGE 3 MG IVPUSH ×2 (01:07→06:16)
[2020-08-10] MEDS: Ketorolac Tromethamine 30 MG/ML VIAL IVPUSH ×2 (02:41→10:28)
[2020-08-10 06:09] LABS: INTERNATIONAL NORM RATIO 1.2 (0.9-1.1); Prothrombin Time 14.4 SEC (10.8-13.0)
[2020-08-10 06:19] LABS: Anion Gap 13 (12-20); Blood Urea Nitrogen 14 mg/dL (9-16); Calcium 8.6 mg/dL (8.4-10.2); Carbon Dioxide 28 mmol/L (22-29); Chloride 100 mmol/L (96-108); Creatinine Clr Calc Pharmacy 133.5; Estimated Glomerular Filt Rate > 60; Glucose Random 93 mg/dL (60-115); Potassium 4.2 mmol/l (3.3-5.1); Sodium 137 mmol/L (135-145)
[2020-08-10 06:28] LABS: Hematocrit 40.7 % (42-52); Hemoglobin 14.3 g/dl (14.0-18.0); Mean Corpuscular HGB Conc 35.1 g/dl (31.0-36.0); Mean Corpuscular Hemoglobin 31.1 pg (27.0-33.0); Mean Corpuscular Volume 88.5 fL (80-98); Mean Platelet Volume 10.2 fL (9.4-12.4); Platelet Count 365 X10*3/uL (160-400); White Blood Count 11.9 X10*3/uL (4.8-10.8)
[2020-08-10] MEDS: Famotidine 20 MG TABLET 40 MG PO (09:26)
[2020-08-10] MEDS: Enoxaparin Sodium 100 MG/ML SYRINGE SUBCUT ×2 (09:26→22:13)
[2020-08-10] MEDS: 0.9 % Sodium Chloride Flush 3 ML SYRINGE IVFLUSH ×2 (09:27→16:55)
--- NOTE | 2020-08-10 10:59 | MHC.CM.PN ---
Referred pt to financial counseling for assistance with [employer] application as pt only has [employer] partial. Pt will need to d/c to home on Lovenox for tx of bilateral PE's.
--- NOTE | 2020-08-10 12:19 | P.PNIM_ITS ---
Subjective Subjective Date of Service: 08/10/20 Interval History: Patient admitted due to chest pain diagnosed with pulmonary embolism and left renal mass, patient complaining of left lower chest pain with deep breathing, and with change in position, denies shortness of breath, no nausea vomiting, no acute issues overnight. General no headache no dizziness no fever chills. CVS left-sided chest pain with deep breathing, no palpitation. Respiratory no cough, no shortness of breath. Gastrointestinal no nausea , no vomiting, no abdominal pain Physical Exam Vital Signs: Vital Signs: Last Vital Signs Temp 98.7 F 08/10/20 11:38 Pulse 86 08/10/20 11:38 Resp 11 L 08/10/20 11:38 BP 126/85 08/10/20 11:38 Pulse Ox 95 08/10/20 11:38 Body Mass Index 29.6 Const: Other: General in mild acute distress due to left-sided chest pain Neck supple no JVD. CVS regular rate rhythm, Respiratory lungs diminished breath sound at left base, pain with deep breathing , no wheeze, no rhonchi. Gastrointestinal abdomen soft, nontender, bowel sounds audible. Extremities no clubbing cyanosis or edema. Neuro nonfocal Skin no rash Objective Data Current Medications Generic Name Dose Route Start Last Admin Trade Name Freq PRN Reason Stop Dose Admin Acetaminophen 650 mg 08/09/20 04:15 Acetaminophen 325 Mg Tablet PO Q6H PRN Pain, Mild (Pain Scale 1-3) Al Hydroxide/Mg Hydroxide 30 ml 08/09/20 14:00 Magnesium Hydrox/Alum Hydrox 30 Ml Oral.Susp PO Q6H PRN Heartburn Enoxaparin Sodium 100 mg 08/09/20 10:00 08/10/20 09:26 Enoxaparin Sodium 100 Mg/Ml Syringe SUBCUT 100 mg BID@1000,2200 ENE Administration Famotidine 40 mg 08/09/20 14:05 08/10/20 09:26 Famotidine 20 Mg Tablet PO 40 mg DAILY ENE Administration Ketorolac Tromethamine 30 mg 08/09/20 13:59 08/10/20 10:28 Ketorolac Tromethamine 30 Mg/Ml Vial IVPUSH 30 mg Q6H PRN Administration Pain, Moderate (Pain Scale 4-6 Morphine Sulfate 3 mg 08/09/20 13:59 08/10/20 06:16 Morphine Sulfate 4 Mg/Ml Cartridge IVPUSH 3 mg Q6H PRN Administration Pain, Severe (Pain Scale 7-10) Sodium Chloride 3 ml 08/09/20 08:00 08/10/20 09:27 0.9 % Sodium Chloride Flush 3 Ml Syringe IVFLUSH 3 ml QSHIFT ENE Administration Labs CBC & Chem 7: 08/10/20 04:20 08/10/20 04:20 Assessment and Plan (1) COVID-19: Status: Acute (2) Bilateral pulmonary embolism: Status: Acute (3) Left renal mass: Status: Acute Assessment and Plan: 45 year old man with COVID who presented with left sided abdominal and pleuritic chest pain. Found to have bilateral PE and left renal mass. Pulmonay embolism Patient with persistent left-sided chest pain likley related to pulm infarction, Likely related to COVID and renal ca. cont. Lovenox as per oncology out patient follow-up with Dr. Alejo, will start teaching to administer Lovenox, will recommend hot pack for muscular left-sided pain, give oxycodone for pain recommend out of bed to chair and incentive spirometery. Renal mass Patient seen by Dr. Hays will have outpatient follow-up appointment with him for possible nephrectomy. COVID Stable, not hypoxic,no fevers,no n,no vomiting, continue supportive care. DVT proph SC Lovenox as above Code status Full code.
--- NOTE | 2020-08-10 13:21 | MHC.CM.PN ---
Met with pt to discuss d/c planning and to verify demographic information Pt resides with family and is independent with all care needs. He drives and does not require DME. Pt has [employer] partial and does not currently have a PCP. Discussed having financial counselor meet with pt to assist with insurance. Explained that he will need to pick a PCP based on his specific plan - CM can assist with a list of available providers. Pt verbalized feeling overwhelmed with recent illness and dx (likely renal carcinoma requiring surgical intervention as an outpt.) Pt states he has a strong support system at home and denied needing outpt services. Betzaida Williamson from [employer] services to call pt on his cell phone today to start the insurance process. CM to follow pt for any d/c needs he may have including assisting pt with Lovenox if needed. HCP completion offered but declined at this time
[2020-08-10] MEDS: Acetaminophen 325 MG TABLET 650 MG PO (16:37)
[2020-08-10] MEDS: oxyCODONE HCl Immed Release 5 MG TABLET PO ×2 (16:37→22:24)
--- NOTE | 2020-08-10 17:28 | PC.NURSE ---
pt alert, oriented very pleasant. In pain all of the day from 4 to 12 out of 10 . Mostly back, chest and left flank. Pain medication regimen changed. Effectiveness pending at this time. Also order for kpad- which pt said helped a decent amount - 20 min on 20min off. Pt educated and instructed on IS - using mult times an hr very compliant at this time. Lungs dim but not taking large deep breaths due to pain - but encouraged pt it will be good for current situation pt understand. PT did not get OOB today due to pain, but was able to repo self more comfortably vs in the am when pt didnt move much due to pain. Pt contact is his mom who is not in [place] right now/ Pt gave consent for info ok to be shared with girlfriend and sister: girlfriend - Cyndi Justin [phone] sister Benja Khan [phone]
[2020-08-11] VITALS: BP 135/75; PULSE 88; RESP 22; TEMP 37.7; O2SAT 95
[2020-08-11] MEDS: 0.9 % Sodium Chloride Flush 3 ML SYRINGE IVFLUSH ×2 (00:22→11:19)
[2020-08-11] MEDS: oxyCODONE HCl Immed Release 5 MG TABLET PO ×2 (02:31→08:08)
[2020-08-11 03:59] VITALS: BP 155/98; PULSE 86; RESP 23; TEMP 37.9; O2SAT 95
[2020-08-11] MEDS: Ketorolac Tromethamine 30 MG/ML VIAL IVPUSH (04:28)
[2020-08-11 04:35] LABS: MANUAL DIFF FLAG NO
[2020-08-11 04:43] LABS: Basophils Percent Auto 0.2 % (0-2); Eosinophils Absolute Auto 0.1 X10*3/uL (0.0-0.4); Eosinophils Percent Auto 0.9 % (0-4); Hematocrit 39.8 % (42-52); Hemoglobin 13.6 g/dl (14.0-18.0); Imm Gran Abs Auto 0.06 X10*3/uL (0.00-0.03); Imm Gran Pct Auto 0.5 % (0.0-0.4); Lymphocytes Absolute Auto 2.1 X10*3/uL (1.2-4.9); Lymphocytes Percent Auto 17.9 % (20-40); Mean Corpuscular HGB Conc 34.2 g/dl (31.0-36.0); Mean Corpuscular Hemoglobin 30.2 pg (27.0-33.0); Mean Corpuscular Volume 88.2 fL (80-98); Monocytes Absolute Auto 1.1 X10*3/uL (0.1-1.2); Monocytes Percent Auto 9.4 % (2-11); Neutrophils Absolute Auto 8.2 X10*3/uL (2.0-8.3); Neutrophils Percent Auto 71.1 % (45-73); Platelet Count 356 X10*3/uL (160-400); Red Blood Count 4.51 X10*6/uL (4.60-5.80); Red Cell Distribution Width 11.9 % (11.0-16.0); White Blood Count 11.5 X10*3/uL (4.8-10.8)
[2020-08-11 04:55] LABS: Lactic Acid 1.1 mmol/L (0.5-2.0)
[2020-08-11 07:50] VITALS: BP 145/81; PULSE 76; RESP 18; TEMP 37.1; O2SAT 96
[2020-08-11] MEDS: Famotidine 20 MG TABLET 40 MG PO (08:09)
[2020-08-11] MEDS: Enoxaparin Sodium 100 MG/ML SYRINGE SUBCUT (11:18)
[2020-08-11 11:31] VITALS: BP 123/80; PULSE 83; RESP 21; TEMP 37.7; O2SAT 96
--- NOTE | 2020-08-11 14:18 | MHC.CM.PN ---
Received confirmation that pt has [facility] Standard: policy number [id number] - New PCP Flores Bender ENTRY REP with a new pt appt 08/19 at 1pm. Called pt on his cell phone to inform him of above. Also placed a call to pt's pharmacy, [facility] on [address] to update his insurance in anticipation of his d/c and script needs. Pt has transportation home and has been receiving training on Lovenox self administration. He feels ready to d/c. aware of above.
--- NOTE | 2020-08-11 15:49 | PM.DS ---
DS: Providers Provider Date of Service: 08/11/20 Date of admission: 08/09/20 04:15 Primary care physician: Unknown Physician Consults: 08/09/20 04:15 Consult to Urology Routine Consulting Provider: Josue Hays Reason for consultation: renal mass found on CT Has provider been notified: No DS: Diagnosis Discharge Diagnosis (1) COVID-19: Status: Acute (2) Bilateral pulmonary embolism: Status: Acute (3) Left renal mass: Status: Acute DS: Medications Discharge Medications Home Medications: Previous Rx's Medication Instructions Recorded ondansetron 4 mg PO Q8H PRN #20 tab 08/02/20 enoxaparin 100 mg SUBCUT BID@1000,2200 #60 ml 08/11/20 oxycodone 5 mg PO Q4H PRN #12 tab 08/11/20 DS: Summary Hospital Course Hospital Course: History of presenting illness Chief Complaint: Left sided chest and abdominal pain. 45 year old man recently diagnosed with COVID who has been quarantining at home. He presented today as he had worsening left flank, abdominal, and chest pain. Pain is pleuritic in nature and sharp with breathing. States is in left side of lower chest and upper abdomen and radiates to his shoulder. No dyspnea or cough. No hemoptysis. He had fevrs/chills with COVID but those symptoms improved. He also had nausea nd diarrhea but those symptoms resolved 2 days ago. He has never had pain like this before. In ED he had CT angio done that showed PE in right upper and left lower lobes. Also had CT abdomen that showed mass in left kidney. He states had episode of hematuria last summer that resolved and he did not seek medical care for it as he perceived it was due to exertion/work. He has not seen any hematuria since then. Hospital course 45 year old man with COVID who presented with left sided abdominal and pleuritic chest pain. Found to have bilateral PE and left renal mass. Pulmonay embolism Patient placed on Lovenox twice daily, patient has received teachings to administer Lovenox, patient continued to have left-sided chest discomfort with deep breathing and also back pain with change in position, patient has been instructed to use incentive spirometry, a small supply of oxycodone 5 mg q.6 hours as needed has been given, patient has been instructed to follow-up with Dr. Romero in next 1-2 weeks for continued use of Lovenox versus use of oral anticoagulants. PE could be related to COVID and also related to hypercoagulable state with renal mass. Renal mass Patient seen by Dr. Hays recommended outpatient follow-up appointment with him for possible nephrectomy in next 3-4 weeks. COVID Stable, not hypoxic,no fevers,no vomiting, recommend to wear mask rest and drink plenty of fluids. Time Spent with Patient Time attestation: Total time spent providing and/or coordinating discharge services: Discharge coordination time: Greater than 30 minutes Physical Exam Vital Signs: Vital Signs: Last Vital Signs Temp 99.8 F 08/11/20 11:31 Pulse 83 08/11/20 11:31 Resp 21 H 08/11/20 11:31 BP 123/80 08/11/20 11:31 Pulse Ox 96 08/11/20 11:31 Body Mass Index 29.6 General sitting comfortably in bed Neck supple no JVD. CVS regular rate rhythm, Respiratory lungs diminished breath sound at left base, mild discomfort with deep breathing, no wheeze, no rhonchi. Gastrointestinal abdomen soft, nontender, bowel sounds audible. Extremities no clubbing cyanosis or edema. Neuro nonfocal Skin no rash DS: Data Data Completed and Pending Labs on day of discharge: Laboratory Tests 08/08/20 08/08/20 08/08/20 22:00 22:15 22:15 WBC 12.7 H RBC 5.24 Hgb 16.0 Hct 46.3 MCV 88.4 MCH 30.5 MCHC 34.6 RDW 11.9 Plt Count 381 MPV 10.3 Immature Gran % (Auto) 0.6 H Neut % (Auto) 75.6 H Lymph % (Auto) 15.4 L [place] % (Auto) 7.9 Eos % (Auto) 0.3 Baso % (Auto) 0.2 Lymph # (Auto) 2.0 [place] # (Auto) 1.0 Eos # (Auto) 0.0 Baso # (Auto) 0.0 Abs Immat Gran (auto) 0.08 H Absolute Neuts (auto) 9.6 H Absolute Nucleated RBC 0.000 Nucleated RBC % (auto) 0.0 PT INR APTT D-Dimer Hold Blue Top SEE NOTE Sodium Potassium Chloride Carbon Dioxide Anion Gap BUN Creatinine Estim Creat Clear Calc Estimated GFR Random Glucose Lactic Acid Calcium Total Bilirubin AST ALT Alkaline Phosphatase Troponin I High Sens Total Protein Albumin Urine Color YELLOW Urine Appearance CLEAR Urine pH 6.5 Ur Specific [place] 1.015 Urine Protein NEG Urine Glucose (UA) 100 H Urine Ketones NEG Urine Blood 1+ H Urine Nitrite NEG Ur Leukocyte Esterase NEG Urine RBC 5-9 H Urine WBC 0 Ur Squamous Epith Cells NONE Urine Bacteria NONE 08/08/20 08/08/20 08/08/20 22:15 22:34 22:36 WBC Cancelled RBC Cancelled Hgb Cancelled Hct Cancelled MCV Cancelled MCH Cancelled MCHC Cancelled RDW Cancelled Plt Count Cancelled MPV Cancelled Immature Gran % (Auto) Cancelled Neut % (Auto) Cancelled Lymph % (Auto) Cancelled [place] % (Auto) Cancelled Eos % (Auto) Cancelled Baso % (Auto) Cancelled Lymph # (Auto) Cancelled [place] # (Auto) Cancelled Eos # (Auto) Cancelled Baso # (Auto) Cancelled Abs Immat Gran (auto) Cancelled Absolute Neuts (auto) Cancelled Absolute Nucleated RBC Cancelled Nucleated RBC % (auto) Cancelled PT INR APTT D-Dimer Hold Blue Top Sodium 139 Potassium 3.8 Chloride 98 Carbon Dioxide 30 H Anion Gap 15 BUN 11 Creatinine 1.30 Estim Creat Clear Calc 89.6 Estimated GFR 60 Random Glucose 109 Lactic Acid Calcium 9.1 D Total Bilirubin 0.3 AST 15 ALT 32 Alkaline Phosphatase 87 Troponin I High Sens < 3.5 Total Protein 8.4 H Albumin 4.6 Urine Color Urine Appearance Urine pH Ur Specific [place] Urine Protein Urine Glucose (UA) Urine Ketones Urine Blood Urine Nitrite Ur Leukocyte Esterase Urine RBC Urine WBC Ur Squamous Epith Cells Urine Bacteria 08/08/20 08/09/20 08/09/20 22:36 05:57 05:57 WBC 10.5 RBC 4.82 Hgb 14.5 Hct 42.7 MCV 88.6 MCH 30.1 MCHC 34.0 RDW 12.0 Plt Count 348 MPV 9.9 Immature Gran % (Auto) Neut % (Auto) Lymph % (Auto) [place] % (Auto) Eos % (Auto) Baso % (Auto) Lymph # (Auto) [place] # (Auto) Eos # (Auto) Baso # (Auto) Abs Immat Gran (auto) Absolute Neuts (auto) Absolute Nucleated RBC 0.000 Nucleated RBC % (auto) 0.0 PT 14.6 H INR 1.2 H APTT 32.2 D-Dimer 344 Hold Blue Top Sodium Potassium Chloride Carbon Dioxide Anion Gap BUN Creatinine Estim Creat Clear Calc Estimated GFR Random Glucose Lactic Acid Calcium Total Bilirubin AST ALT Alkaline Phosphatase Troponin I High Sens Total Protein Albumin Urine Color Urine Appearance Urine pH Ur Specific [place] Urine Protein Urine Glucose (UA) Urine Ketones Urine Blood Urine Nitrite Ur Leukocyte Esterase Urine RBC Urine WBC Ur Squamous Epith Cells Urine Bacteria 08/10/20 08/10/20 08/10/20 04:20 04:20 04:20 WBC 11.9 H RBC 4.60 Hgb 14.3 Hct 40.7 L MCV 88.5 MCH 31.1 MCHC 35.1 RDW 12.0 Plt Count 365 MPV 10.2 Immature Gran % (Auto) Neut % (Auto) Lymph % (Auto) [place] % (Auto) Eos % (Auto) Baso % (Auto) Lymph # (Auto) [place] # (Auto) Eos # (Auto) Baso # (Auto) Abs Immat Gran (auto) Absolute Neuts (auto) Absolute Nucleated RBC 0.000 Nucleated RBC % (auto) 0.0 PT 14.4 H INR 1.2 H APTT D-Dimer Hold Blue Top Sodium 137 Potassium 4.2 Chloride 100 Carbon Dioxide 28 Anion Gap 13 BUN 14 Creatinine 0.86 Estim Creat Clear Calc 133.5 Estimated GFR > 60 Random Glucose 93 Lactic Acid Calcium 8.6 Total Bilirubin AST ALT Alkaline Phosphatase Troponin I High Sens Total Protein Albumin Urine Color Urine Appearance Urine pH Ur Specific [place] Urine Protein Urine Glucose (UA) Urine Ketones Urine Blood Urine Nitrite Ur Leukocyte Esterase Urine RBC Urine WBC Ur Squamous Epith Cells Urine Bacteria 08/11/20 08/11/20 04:27 04:27 WBC 11.5 H RBC 4.51 L Hgb 13.6 L Hct 39.8 L MCV 88.2 MCH 30.2 MCHC 34.2 RDW 11.9 Plt Count 356 MPV 10.0 Immature Gran % (Auto) 0.5 H Neut % (Auto) 71.1 Lymph % (Auto) 17.9 L [place] % (Auto) 9.4 Eos % (Auto) 0.9 Baso % (Auto) 0.2 Lymph # (Auto) 2.1 [place] # (Auto) 1.1 Eos # (Auto) 0.1 Baso # (Auto) 0.0 Abs Immat Gran (auto) 0.06 H Absolute Neuts (auto) 8.2 Absolute Nucleated RBC 0.000 Nucleated RBC % (auto) 0.0 PT INR APTT D-Dimer Hold Blue Top Sodium Potassium Chloride Carbon Dioxide Anion Gap BUN Creatinine Estim Creat Clear Calc Estimated GFR Random Glucose Lactic Acid 1.1 Calcium Total Bilirubin AST ALT Alkaline Phosphatase Troponin I High Sens Total Protein Albumin Urine Color Urine Appearance Urine pH Ur Specific [place] Urine Protein Urine Glucose (UA) Urine Ketones Urine Blood Urine Nitrite Ur Leukocyte Esterase Urine RBC Urine WBC Ur Squamous Epith Cells Urine Bacteria Discharge Plan Discharge Patient Disposition: Home, Self-Care Referrals: Physician,Unknown [Primary Care Provider] - Flores Bender NP [Nurse Practitioner] - 08/19/20 1:00 am (New patient appointment at the [facility] Number for scripts: [phone]) Discharge Medications: New oxycodone 5 mg Tablet 5 mg PO Q4H PRN (Reason: Pain, Severe (Pain Scale 7-10)) Qty: 12 RF: 0 enoxaparin 100 mg/mL Syringe 100 mg subcut BID@1000,2200 Qty: 60 RF: 0 Continued ondansetron 4 mg tablet,disintegrating 4 mg PO Q8H PRN (Reason: nausea and vomiting) Qty: 20 RF: 0 Discharge Orders: Discharge Order (Routine); Ordered 08/11/20 Ordered By: Slim Trammell Activity on Discharge: As tolerated Stand Alone Forms: Patient Portal Discharge page Discharge Date/Time: 08/11/20 13:25 Visit Report Forms: Patient Portal Discharge page Care Plan Goals: TAKE LOVENOX TWICE DAILY PRESCRIBED, CONTINUE USING INCENTIVE SPIROMETERY Health Concerns: PULMONARY EMBOLISM AND LEFT KIDNEY MASS Plan of Treatment: FOLLOW-UP WITH DR. JOSUE HAYS IN 3-4 WEEKS, FOLLOW-UP WITH DR. ROMERO FROM ONCOLOGY IN NEXT 1-2 WEEKS TO DECIDE ABOUT CONTINUED USE OF LOVENOX.
== END 2020-08-11 13:25 | disposition home or self-care (01) | DRG 137 ==
LOC: HO.ED 08-09 02:58 → HO.EDOVER 08-09 04:51 → HO.ISO 08-09 19:11
PROVIDERS: Internal Medicine; Student in an Organized Health Care Education/Training Program; Admitting Provider Internal Medicine; Emergency Provider Emergency Medicine; Visit Provider Hospitalist
DX: U07.1 COVID-19 (principal); I26.99 Other pulmonary embolism without acute cor pulmonale; C64.2 Malignant neoplasm of left kidney, except renal pelvis; R10.9 Unspecified abdominal pain
CPT/HCPCS: 36415; 71045; 71275; 74176; 80048; 80053; 81001; 83605; 84484; 85025; 85027; 85379; 85610; 85730; 87040; 93005; 96372; 96374; 96375; 99285; 99291; J1650; J1885; J2270; Q9967

== ENCOUNTER 2020-08-25 12:32 | Outpatient (REF) | payer OTHER, SELFPAY ==
[2020-08-25 14:17] LABS: Hematocrit 43.2 % (42-52); Hemoglobin 14.6 g/dl (14.0-18.0); Mean Corpuscular HGB Conc 33.8 g/dl (31.0-36.0); Mean Corpuscular Hemoglobin 30.2 pg (27.0-33.0); Mean Corpuscular Volume 89.4 fL (80-98); Platelet Count 504 X10*3/uL (160-400); Red Blood Count 4.83 X10*6/uL (4.60-5.80); Red Cell Distribution Width 12.9 % (11.0-16.0); White Blood Count 6.7 X10*3/uL (4.8-10.8)
[2020-08-25 14:34] LABS: Alanine Aminotransferase 69 U/L (0-40); Albumin Level 4.4 g/dL (3.5-5.0); Alkaline Phosphatase 72 U/L (39-117); Anion Gap 14 (12-20); Aspartate Amino Transferase 16 U/L (5-37); Bilirubin Direct 0.2 mg/dL (0.0-0.5); Bilirubin Total 0.7 mg/dL (0.0-1.0); Blood Urea Nitrogen 8 mg/dL (9-16); Calcium 9.5 mg/dL (8.4-10.2); Carbon Dioxide 28 mmol/L (22-29); Chloride 99 mmol/L (96-108); Cholesterol 222 mg/dL; Estimated Glomerular Filt Rate > 60; Glucose Fasting 96 mg/dL (60-99); HDL Cholesterol 58 mg/dL; LDL Cholesterol Calculated 133 mg/dl; Potassium 4.2 mmol/L (3.3-5.1); Sodium 137 mmol/L (135-145); Total Protein 8.1 g/dL (6.5-8.0); Triglycerides 158 mg/dL
[2020-08-25 14:55] LABS: TSH reflex Free T4 0.39 uIU/mL (0.32-4.0)
== END 2020-08-25 12:33 | disposition home or self-care (01) ==
LOC: HO.WFDLDS 12:32
PROVIDERS: Visit Provider Hospitalist
DX: Z00.01 Encounter for general adult medical examination with abnormal findings (principal)
CPT/HCPCS: 36415; 80048; 80061; 80076; 84443; 85027

== ENCOUNTER → 2020-09-08 10:18 | Outpatient (REF) | payer OTHER, SELFPAY ==
--- NOTE | ~2020-09-08 | NM_ITS ---
EXAMINATION: NM BONE SCAN OF THE WHOLE BODY CLINICAL INFORMATION: Kidney cancer. COMPARISON: No previous bone scan is available for comparison. A radiograph of the chest dated 08/08/2020 is the only radiograph available for comparison. The diagnostic CT scan of the chest, abdomen, and pelvis and pelvis, dated 08/09/2020, is available for comparison. TECHNIQUE: Multiple gamma scintillation camera images of the whole body were performed 3.75 hours following the intravenous administration of 36.0 mCi Tc-99m MDP. FINDINGS: In the head, no significant abnormalities are present. In the thoracic cage and upper extremities, there is moderately increased activity in the acromioclavicular joint and mildly increased activity in the sternoclavicular joints and costochondral junctions of both first ribs. In the spine, no significant abnormalities are present. In the pelvis, no significant abnormalities are present. In the lower extremities, no significant abnormalities are present. No other definite bony abnormalities are noted. The urinary bladder and faint visualization of both kidneys are noted. There is a subtle defect in the upper pole the left kidney that corresponds to the patient's known left renal mass at this site. NM/NM bone scan whole body IMPRESSION: A few mild nonspecific abnormalities are noted as described above and these are all likely arthritic or traumatic in etiology. None of these abnormalities is strongly suspicious for metastatic disease.
== END ==
LOC: HO.NUCMED 10:18
PROVIDERS: Visit Provider Internal Medicine
DX: N28.89 Other specified disorders of kidney and ureter (principal)
CPT/HCPCS: 78306; A9503

== ENCOUNTER 2020-09-10 08:13 | Outpatient (REF) | payer OTHER, SELFPAY ==
--- NOTE | ~2020-09-10 | MR_ITS ---
EXAMINATION: MR ABDOMEN WITHOUT AND WITH CONTRAST CLINICAL INFORMATION: Kidney cancer. Flank pain. COMPARISON: CT 08/09/2020 TECHNIQUE: MR abdomen was performed without and with use of 10 mL intravenous Gadavist gadolinium contrast. Postcontrast images are performed in multiphase dynamic sequences. Imaging was performed in 3 planes. Dynamic postcontrast images through the kidneys were obtained. FINDINGS: LUNG BASES: There is left base atelectasis, present previously as well. LIVER, GALLBLADDER, AND BILIARY TREE: The liver is normal in size, smooth in contour, and normal in signal. No focal hepatic lesion or biliary ductal dilatation is present. The gallbladder is unremarkable with no evidence of gallbladder wall thickening, or obvious pericholecystic inflammatory changes. PANCREAS: Unremarkable. SPLEEN: Normal. ADRENAL GLANDS: Normal. KIDNEYS AND URETERS: Normal right renal enhancement. Again seen is a multilobular heterogeneously enhancing mass involving the upper pole of the left kidney. This measures 6.6 x 5.2 cm transaxial by 6 cm craniocaudal. The mass involves the left renal hilar fat but there is no definite involvement of the left renal vein which opacifies normally. There is displacement without definite invasion of the left renal collecting system. The mass extends beyond the expected posterior margin left kidney into the left posterior perinephric fat to abut the undersurface of the left diaphragm. m There is am 7 mm cyst of the anterolateral cortex of left mid kidney. GASTROINTESTINAL TRACT: No bowel obstruction. No ascites or fluid collection. ABDOMINAL WALL: No significant hernia is appreciated. LYMPH NODES: Normal sized retroperitoneal lymph nodes are present. For example there is an 8 mm aortocaval lymph node. No retroperitoneal lymphadenopathy. The aorta is normal in caliber. The inferior vena cava enhances normally. VASCULAR: Unremarkable. OSSEOUS STRUCTURES: Marrow signal normal. MR/MR abdomen wo/w con IMPRESSION: 6.6 x 5.2 x 6 cm heterogeneously enhancing mass of the upper pole of the left kidney highly suspicious for renal cell carcinoma. The mass involves the left renal hilar fat but there is no tumor thrombus in the left renal vein or inferior vena cava. No definite involvement of the left renal collecting system, better visualized on the prior CT scan 08/09/2020. There is extension of the mass posteriorly beyond the expected capsular margins of the kidney, into the left perinephric fat to abut the left diaphragm. There is no definite evidence of transmural diaphragmatic involvement but there is broad contact.
--- NOTE | 2020-09-13 12:46 | P.EN_ITS ---
I discussed MRI findings with patient. He will need evaluation for radical nephrectomy. I am referring him to urologist, Dr. Pritchett at [facility].
== END 2020-09-10 08:14 | disposition home or self-care (01) ==
LOC: HO.MRI 08:13
PROVIDERS: Visit Provider Internal Medicine
DX: N28.89 Other specified disorders of kidney and ureter (principal)
CPT/HCPCS: 74183; A9585

== ENCOUNTER 2020-11-03 12:20 | Outpatient (REF) | payer OTHER, SELFPAY ==
[2020-11-03 13:36] LABS: COVID-19 Test Negative (Negative)
== END 2020-11-03 12:21 | disposition home or self-care (01) ==
LOC: HO.LAB 12:20
PROVIDERS: Visit Provider Internal Medicine
DX: Z20.822 Contact with and (suspected) exposure to COVID-19 (principal)
CPT/HCPCS: 36415; 87635; C9803

== ENCOUNTER 2020-11-25 03:31 | Emergency (ER) | payer OTHER, SELFPAY ==
--- NOTE | 2020-11-25 | ECG_ITS ---
Test Reason : CP Blood Pressure : / mmHG Vent. Rate : 075 BPM Atrial Rate : 075 BPM P-R Int : 144 ms QRS Dur : 092 ms QT Int : 388 ms P-R-T Axes : 040 042 025 degrees QTc Int : 433 ms Normal sinus rhythm Normal ECG When compared with ECG of 08-AUG-2020 22:47, No significant change was found Referred By: Radha Cheng Electronically Signed By:SARAH GRACE
--- NOTE | ~2020-11-25 | XR_ITS ---
EXAMINATION: XR CHEST CLINICAL INFORMATION: Chest pain COMPARISON: 08/09/2020 TECHNIQUE: Frontal view of the chest was obtained. FINDINGS: Lung volumes are symmetric. No focal consolidation is seen. No evidence of pneumothorax, pleural effusion, or pulmonary edema. The cardiomediastinal contour is unremarkable. No acute osseous findings are seen. XR/XR chest 1V IMPRESSION: No acute cardiopulmonary findings.
[2020-11-25 03:50] VITALS: BP 182/110; PULSE 72; RESP 16; TEMP 37.2; O2SAT 100; BMI 32.1
--- NOTE | 2020-11-25 04:04 | PC.NURSE ---
Chest Xray being obtained at this time. Plan to insert IV access and obtain labs for analysis. Providing urine specimen after xray.
[2020-11-25 04:20] LABS: Basophils Absolute Auto 0.1 X10*3/uL (0.0-0.2); Basophils Percent Auto 0.5 % (0-2); Eosinophils Absolute Auto 0.1 X10*3/uL (0.0-0.4); Hematocrit 45.2 % (42-52); Hemoglobin 15.8 g/dl (14.0-18.0); Imm Gran Abs Auto 0.04 X10*3/uL (0.00-0.03); Imm Gran Pct Auto 0.4 % (0.0-0.4); Lymphocytes Absolute Auto 2.1 X10*3/uL (1.2-4.9); Lymphocytes Percent Auto 22.1 % (20-40); MANUAL DIFF FLAG NO; Mean Corpuscular Hemoglobin 30.9 pg (27.0-33.0); Mean Corpuscular Volume 88.3 fL (80-98); Mean Platelet Volume 9.4 fL (9.4-12.4); Monocytes Absolute Auto 0.6 X10*3/uL (0.1-1.2); Monocytes Percent Auto 6.7 % (2-11); Neutrophils Absolute Auto 6.4 X10*3/uL (2.0-8.3); Neutrophils Percent Auto 69.3 % (45-73); Platelet Count 364 X10*3/uL (160-400); Red Blood Count 5.12 X10*6/uL (4.60-5.80); Red Cell Distribution Width 12.8 % (11.0-16.0); White Blood Count 9.3 X10*3/uL (4.8-10.8)
[2020-11-25 04:43] LABS: Troponin-I High Sensitivity < 3.5 ng/L (<3.5-35.0)
--- NOTE | 2020-11-25 04:46 | PC.NURSE ---
at bedside for primary ED MD evaluation. Pt is pleasant/cooperative, but reports being anxious due to new kidney cancer diagnosis. [facility] just told me yesterday that the biopsy that they did on my kidney is cancerous, so they did a CT scan to check it. I took Gabapentin (which I have been taking for a while) for the pain, but I don't know if I'm having a reaction to this after the IV dye that I got earlier, or if I'm having a heart attack, or if I'm just anxious . Pt ambulates with steady gait. Cooperative with staff. Awaiting lab results. 18g IV Access established in left AC.
[2020-11-25 04:53] LABS: Anion Gap 14 (12-20); Blood Urea Nitrogen 10 mg/dL (9-16); Calcium 9.5 mg/dL (8.4-10.2); Carbon Dioxide 24 mmol/L (22-29); Chloride 101 mmol/L (96-108); Creatinine Clr Calc Pharmacy 136.3; Estimated Glomerular Filt Rate > 60; Glucose Random 97 mg/dL (60-115); Potassium 3.8 mmol/L (3.3-5.1); Sodium 135 mmol/L (135-145)
--- NOTE | 2020-11-25 05:02 | ED.CHESTPAIN ---
HPI - Chest Pain General Chief Complaint: Chest Pain Stated Complaint: Chest pain Time Seen by Provider: 11/25/20 05:02 Source: patient Mode of arrival: ambulatory History of Present Illness HPI narrative: 45-year-old male with significant recent history of renal cell carcinoma and states that he began having increase chest pain after he took gabapentin approximately 1900 last night for known renal mass effect on his diaphragm. He states that he then went upstairs to bed and was lying in bed watching television and then at approximately 11:00 p.m. states that he began having a lot of chest pressure, nonradiating that he states felt like ?heaving? or like it was on a ?roller coaster?. He denies any perioral tingling or numbness as well as denies any peripheral tingling and denies any dizziness but states he was experiencing some shortness of breath. Otherwise, he states that he has known PEs for which he is on twice daily Lovenox injections but states that he has not taking that within the past 24 hours. He says he was called yesterday morning and informed that he needed to have a CT of his chest. At the time of this interview patient states that he is chest pain-free Related Data Previous Rx's Medication Instructions Recorded enoxaparin 100 mg/mL subcutaneous 100 mg SUBCUT BID@1000,2200 #60 ml 08/31/20 syringe metoprolol succinate 50 mg 50 mg PO DAILY 30 Days #30 tab 11/01/20 tablet,extended release 24 hr pregabalin 150 mg capsule 150 mg PO BID 30 Days #60 cap 11/01/20 tramadol 50 mg tablet 50 mg PO Q8H PRN 30 Days #90 tab 11/01/20 Allergies Allergy/AdvReac Type Severity Reaction Status Date / Time No Known Allergies Allergy Verified 11/25/20 03:54 [No Known Allergies*] Review of Systems Review of Systems: Pertinent positives and negatives as stated in HPI 10 point review of systems is otherwise negative. [facility], [facility] Past Medical History Source: nursing notes reviewed Medical History COVID-19 Kidney stones Substance abuse Social History Social History Household Members: Family Housing: House Alcohol intake: current Alcohol intake frequency: a few times a month Smoking Status: Light tobacco smoker Substance Use Type: Marijuana Advance Directives: No Advance Directives Information Provided: No service: No Current occupational status: unemployed Physical Exam Vital Signs: Vital Signs: Last Vital Signs Temp 98.9 F 11/25/20 03:50 Pulse 72 11/25/20 03:50 Resp 16 11/25/20 03:50 BP 182/110 H 11/25/20 03:50 Pulse Ox 100 11/25/20 03:50 Body Mass Index 32.1 VITAL SIGNS: Reviewed. GENERAL: Well developed, well nourished, anxious. HEAD: Normocephalic/atraumatic, EYES: PERRLA, EOMI EARS: Ext canals without abnormality NOSE: Nares patent bilateral OROPHARYNX: no oral lesions noted, posterior pharynx clear NECK: Supple, no adenopathy LUNGS: Normal breath sounds. No adventitious sounds or accessory muscle use. SpO2<100> CARDIOVASCULAR: Regular rate and rhythm without noted murmurs ABDOMEN: Soft, non-tender, non-distended with bowel sounds. NEUROLOGIC: Alert and oriented x 4. Course Course Course Narrative: 45-year-old male with history and clinical presentation consistent with likely panic attack, but will of rule out less likely cardiopulmonary etiologies. Although patient has been off of Lovenox for 24 hours on review of documentation from [facility] there is documentation that patient stated he decided to stop taking Lovenox because he was tired of injecting himself. He is hemodynamically stable. Of all investigations is negative for evidence of any acute findings from baseline. Patient is currently symptom-free, and all results and findings were discussed with him at bedside. He was strongly encouraged to follow-up with his primary care today to discuss further management his reasonable feelings of sadness and anxiety. Patient was provided with a.m. dose Lovenox here in the emergency department and instructed to continue his medication as prescribed. MDM - Chest Pain Lab Data Result diagrams: 11/25/20 04:15 11/25/20 04:15 Labs: Lab Results 11/25/20 11/25/20 11/25/20 Range/Units 04:15 04:15 04:15 WBC 9.3 (4.8-10.8) X10*3/uL RBC 5.12 (4.60-5.80) X10*6/uL Hgb 15.8 (14.0-18.0) g/dl Hct 45.2 (42-52) % MCV 88.3 (80-98) fL MCH 30.9 (27.0-33.0) pg MCHC 35.0 (31.0-36.0) g/dl RDW 12.8 (11.0-16.0) % Plt Count 364 D (160-400) X10*3/uL MPV 9.4 (9.4-12.4) fL Immature Gran % (Auto) 0.4 (0.0-0.4) % Neut % (Auto) 69.3 (45-73) % Lymph % (Auto) 22.1 (20-40) % [place] % (Auto) 6.7 (2-11) % Eos % (Auto) 1.0 (0-4) % Baso % (Auto) 0.5 (0-2) % Lymph # (Auto) 2.1 (1.2-4.9) X10*3/uL [place] # (Auto) 0.6 (0.1-1.2) X10*3/uL Eos # (Auto) 0.1 (0.0-0.4) X10*3/uL Baso # (Auto) 0.1 (0.0-0.2) X10*3/uL Abs Immat Gran (auto) 0.04 H (0.00-0.03) X10*3/uL Absolute Neuts (auto) 6.4 (2.0-8.3) X10*3/uL Absolute Nucleated RBC 0.000 (0.0-0.012) X10*3/uL Nucleated RBC % (auto) 0.0 (0.0-0.2) /100WBC Hold Blue Top SEE NOTE Sodium 135 (135-145) mmol/L Potassium 3.8 (3.3-5.1) mmol/L Chloride 101 (96-108) mmol/L Carbon Dioxide 24 (22-29) mmol/L Anion Gap 14 (12-20) BUN 10 (9-16) mg/dL Creatinine 0.85 (0.5-1.4) mg/dL Estim Creat Clear Calc 136.3 Estimated GFR > 60 Random Glucose 97 (60-115) mg/dL Calcium 9.5 (8.4-10.2) mg/dL Troponin I High Sens (<3.5-35.0) ng/L Urine Color Urine Appearance Urine pH (5.0-8.0) Ur Specific [place] (1.005-1.025) Urine Protein (NEG-TRACE) MG/DL Urine Glucose (UA) (NEG) MG/DL Urine Ketones (NEG) MG/DL Urine Blood (NEG) Urine Nitrite (NEG) Ur Leukocyte Esterase (NEG) Urine RBC (0) /HPF Urine WBC (0-4) /HPF Ur Squamous Epith Cells /LPF Urine Bacteria /LPF 11/25/20 11/25/20 Range/Units 04:15 05:38 WBC (4.8-10.8) X10*3/uL RBC (4.60-5.80) X10*6/uL Hgb (14.0-18.0) g/dl Hct (42-52) % MCV (80-98) fL MCH (27.0-33.0) pg MCHC (31.0-36.0) g/dl RDW (11.0-16.0) % Plt Count (160-400) X10*3/uL MPV (9.4-12.4) fL Immature Gran % (Auto) (0.0-0.4) % Neut % (Auto) (45-73) % Lymph % (Auto) (20-40) % [place] % (Auto) (2-11) % Eos % (Auto) (0-4) % Baso % (Auto) (0-2) % Lymph # (Auto) (1.2-4.9) X10*3/uL [place] # (Auto) (0.1-1.2) X10*3/uL Eos # (Auto) (0.0-0.4) X10*3/uL Baso # (Auto) (0.0-0.2) X10*3/uL Abs Immat Gran (auto) (0.00-0.03) X10*3/uL Absolute Neuts (auto) (2.0-8.3) X10*3/uL Absolute Nucleated RBC (0.0-0.012) X10*3/uL Nucleated RBC % (auto) (0.0-0.2) /100WBC Hold Blue Top Sodium (135-145) mmol/L Potassium (3.3-5.1) mmol/L Chloride (96-108) mmol/L Carbon Dioxide (22-29) mmol/L Anion Gap (12-20) BUN (9-16) mg/dL Creatinine (0.5-1.4) mg/dL Estim Creat Clear Calc Estimated GFR Random Glucose (60-115) mg/dL Calcium (8.4-10.2) mg/dL Troponin I High Sens < 3.5 (<3.5-35.0) ng/L Urine Color COLORLESS Urine Appearance CLEAR Urine pH 6.5 (5.0-8.0) Ur Specific [place] <= 1.005 (1.005-1.025) Urine Protein NEG (NEG-TRACE) MG/DL Urine Glucose (UA) NEG (NEG) MG/DL Urine Ketones NEG (NEG) MG/DL Urine Blood 1+ H (NEG) Urine Nitrite NEG (NEG) Ur Leukocyte Esterase NEG (NEG) Urine RBC 1-4 (0) /HPF Urine WBC 0-2 (0-4) /HPF Ur Squamous Epith Cells TRACE /LPF Urine Bacteria TRACE /LPF ECG Data ECG #1: Attestation: I personally reviewed and interpreted this ECG as follows: Prior ECG tracings: available for review (08/08/2020 no acute changes on comparison) Interpretation: Normal sinus rhythm, HR -75, no evidence of acute ischemia, GA/QRS/QTC are within normal limits. Discharge Plan Discharge Clinical Impression: Atypical chest pain, Anxiety Patient Disposition: Home, Self-Care Instructions: Chest Pain (ED), Anxiety (ED) Additional Instructions: 1. Please resume all medications that you have been prescribed especially for your blood pressure and your PE. 2. Follow-up with your primary care provider today for further discussions regarding management of your pain as well as reasonable feelings of anxiety and stress. Do not hesitate to return to the emergency department should you feel any acute worsening of symptoms. Prescriptions: No Action enoxaparin 100 mg/mL syringe 100 mg subcut BID@1000,2200 Qty: 60 RF: 0 pregabalin 150 mg capsule 150 mg PO BID 30 Days Qty: 60 RF: 0 tramadol 50 mg tablet 50 mg PO Q8H PRN (Reason: pain) 30 Days Qty: 90 RF: 0 metoprolol succinate 50 mg tablet extended release 24 hr 50 mg PO DAILY 30 Days Qty: 30 RF: 1 Referrals: Physician,Unknown [Primary Care Provider] - 2 days
[2020-11-25 06:10] LABS: Glucose Urine UA NEG (NEG); Leukocyte Esterase Urine NEG (NEG); Nitrite Urine NEG (NEG); PH 6.5 (5.0-8.0); Specific Gravity - Urine <= 1.005 (1.005-1.025); Urine Blood 1+ (NEG); Urine Ketones NEG (NEG); Urine Protein NEG (NEG-TRACE)
[2020-11-25 06:11] LABS: Appearance Urine CLEAR; Color Urine COLORLESS
[2020-11-25 06:19] LABS: Bacteria Urine TRACE /LPF; Squamous Epithelial Cell Urine TRACE /LPF; WBC Urine 0-2 /HPF (0-4)
[2020-11-25] MEDS: Enoxaparin Sodium 100 MG/ML SYRINGE SUBCUT (07:25)
[2020-11-25] MEDS: Acetaminophen 325 MG TABLET 975 MG PO (07:25)
== END 2020-11-25 07:32 | disposition home or self-care (01) ==
PROVIDERS: Emergency Provider Student in an Organized Health Care Education/Training Program
DX: R07.89 Other chest pain (principal); F17.200 Nicotine dependence, unspecified, uncomplicated; F12.90 Cannabis use, unspecified, uncomplicated; Z71.6 Tobacco abuse counseling; Z79.899 Other long term (current) drug therapy
CPT/HCPCS: 36415; 71045; 80048; 81001; 84484; 85025; 93005; 96372; 99284; J1650

== ENCOUNTER → 2024-03-20 11:46 | Outpatient (RCR) | payer OTHER, SELFPAY ==
[2020-08-31 09:12] VITALS: BP 170/98; PULSE 78; RESP 20; TEMP 37.2; O2SAT 97; BMI 31.0
--- NOTE | 2020-08-31 09:58 | P.CNHO_ITS ---
Subjective - Subjective Chief complaint: Back pain Patient: new to practice Consult date: 08/31/20 Primary Care Provider: Flores Bender NP HPI - Consult Narrative Reason for consult: Left renal mass, kidney cancer Narrative: Wilfrid Esparza is a 45 year old male who is referred for evaluation of left kidney mass. He was diagnosed with COVID-19 infection in July 2020. He had symptoms of fever, cough and shortness of breath. A few days later even back to the emergency department with pain in his left flank/back region. He underwent CT angiogram which revealed small segmental pulmonary emboli but also a left kidney mass. He was briefly admitted, started on Lovenox b.i.d. and evaluated by Urology. He is going to see Dr. Hays next week. He is complaining of pain that is moderately severe in his left flank radiating to the right lower back. It is difficult for him even to walk and it hurts to take a deep breath. He denies shortness of breath or cough. He denies any bruising or bleeding. He says his vision has deteriorated in the last several months. He has not seen an seed packer. He has told his PCP about this and awaiting referral to Ophthalmology. Review of Systems - Constitutional Reports malaise, Denies poor appetite, Denies weight loss - Cardiovascular Denies chest pain with activity, Denies lightheadedness, Denies shortness of breath with activity - Respiratory Denies cough, Reports pain on inspiration - Gastrointestinal Denies change in bowel habits - Genitourinary Genitourinary: Denies no additional male genitourinary complaints [facility] Medical History: Medical History (Last Reviewed 08/31/20 @ 09:08 by Keke Patten RN) COVID-19 Kidney stones Substance abuse Social History: Social History (Last Updated 08/31/20 @ 09:10 by Keke Patten RN) Living Situation History: Household Members: Family Housing: House Alcohol History: Alcohol intake: current Alcohol History Details: Alcohol intake frequency: a few times a month Tobacco History: Smoking Status: Light tobacco smoker Substance Use History: Substance Use Type: Marijuana Occupation Assessmet: service: No Current occupational status: unemployed Smoking status: Light tobacco smoker Home Medications and Allergies Allergies Allergy/AdvReac Type Severity Reaction Status Date / Time No Known Allergies Allergy Verified 08/31/20 09:10 [No Known Allergies*] Physical Exam Vital signs: Vital Signs Temp 98.9 F 08/31/20 09:12 Pulse 78 08/31/20 09:12 Resp 20 08/31/20 09:12 BP 170/98 H 08/31/20 09:12 Pulse Ox 97 08/31/20 09:12 Intake & Output 08/30/20 08/31/20 08/31/20 18:59 06:59 18:59 Other: Weight 103.9 kg [place] Weight in Grams [id number] Weight 103.9 kg - Constitutional Absent: no acute distress - Routine HEENT Exam Head: Present: normal inspection Eye: Present: EOMI - Routine Neck Exam Present: supple. Absent: lymphadenopathy - Routine Respiratory Exam Present: CTAB - Routine Cardiovascular Exam Cardiovascular: Present: RRR, S1, S2 - Routine Abdominal Exam Present: soft. Absent: organomegaly, tenderness - Routine Extremities Exam Absent: pedal edema - Routine Back/Spine/Pelvis Exam Back/Spine: Present: CVA tenderness Hem/Onc Consult Result - Labs Labs: Laboratory Tests 08/25/20 08/25/20 12:40 12:40 WBC 6.7 RBC 4.83 Hgb 14.6 Hct 43.2 MCV 89.4 MCH 30.2 MCHC 33.8 RDW 12.9 Plt Count 504 H D MPV 10.0 BUN 8 L Creatinine 0.81 Total Bilirubin 0.7 Direct Bilirubin 0.2 AST 16 ALT 69 H Assessment and Plan (1) Left renal mass Status: Acute 1. This is a 45-year-old male presenting with left adrenal mass diagnosed in July 2020 which is suspicious for renal cell carcinoma. He was diagnosed with COVID-19 infection in July 2020. A few days after this he developed fairly severe left flank pain and shortness of breath. He was diagnosed with few small subsegmental pulmonary emboli but he was also noted to have large left kidney mass in the upper pole of the left kidney measuring 7 x 4.2 x 5.3 cm. Lesion extending through perirenal fat and abuts the left hemidiaphragm posteriorly, no extension into the renal vein. No lymphadenopathy. Clinically T3 lesion. Further staging with MRI abdomen with contrast and bone scan has been ordered. Based on his clinical stage he would be a candidate for radical nephrectomy. Given his young age familial cancer syndromes have to be considered as well. There does not appear to be family history of kidney or any other type of cancer. 2. Bilateral segmental pulmonary emboli, could be related to COVID-19 but renal malignancy would also be a possible etiological factor. He is on Lovenox 100 mg subQ b.i.d.. Duration should be about 6 months. Further recommendations to follow, follow-up in 2 weeks.
--- NOTE | 2020-08-31 09:59 | MHC.HEMONC ---
Patient seen for consult. MD aware of vitals, pain, and coughing up phlegm. Clinical summary updated with nurse. Provider seen patient. Scans given to SW to book. Follow-up booked.
--- NOTE | 2020-08-31 13:05 | MHC.HEMONCMA ---
Patient needs to have MRI of abdomen and bone scan, orders were printed and given to Roya.
--- NOTE | 2020-09-14 14:44 | MHC.HEMONCMA ---
Called and spoke with Urology, the patient was scheduled for 09/28/2020 at 11:30am for an in person consult, and his appt with us today has been rescheduled until 10/05/2020 at 4pm. Patient is aware of both appts, the address of [address] [place] [address] was given and i also let him know that he can not bring a visitor with him to this appt. Patient is aware of everything. All records requested were faxed.
[2020-10-05 16:06] VITALS: BMI 31.6
--- NOTE | 2020-10-05 16:07 | P.PNHO_ITS ---
Medical Summary - Medical Summary Date of Service: 10/05/20 Chief complaint: Flank pain Medical Summary: Diagnosis left kidney cancer He underwent CT angiogram which revealed small segmental pulmonary emboli but also a left kidney mass. He was briefly admitted, started on Lovenox b.i.d. and evaluated by Urology. He presented with moderately severe in his left flank radiating to the right lower back. Interval History Interval history: Patient is here in follow-up, he is accompanied by his significant other. He has been seen by urologist at [facility] and he has been enrolled in clinical trial using neoadjuvant immunotherapy. He is here requesting pain medications as he has severe flank pain. His blood pressure is quite elevated. He denies nausea or emesis. No fever or chills. No change in bowel habits. He has been on tramadol and gabapentin. Review of Systems - Constitutional Reports as per HPI, Reports no additional constitutional complaints, Denies fa tigue, Denies fever(s), Denies malaise, Denies night sweats, Denies poor appetite, Denies weight loss PMFSH Medical History: Medical History (Last Updated 09/13/20 @ 12:02 by Flores Bender NP) COVID-19 Kidney stones Substance abuse Social History: Social History (Last Reviewed 09/13/20 @ 11:34 by Flores Bender NP) Living Situation History: Household Members: Family Housing: House Alcohol History: Alcohol intake: current Alcohol History Details: Alcohol intake frequency: a few times a month Tobacco History: Smoking Status: Light tobacco smoker Substance Use History: Substance Use Type: Marijuana Occupation Assessmet: service: No Current occupational status: unemployed Smoking status: Light tobacco smoker Home Medications and Allergies Allergies Allergy/AdvReac Type Severity Reaction Status Date / Time No Known Allergies Allergy Verified 09/13/20 11:34 [No Known Allergies*] Exam Vital signs: Vital Signs Temp 98.9 F 08/31/20 09:12 Pulse 78 08/31/20 09:12 Resp 20 08/31/20 09:12 BP 170/98 H 08/31/20 09:12 Pulse Ox 97 08/31/20 09:12 Intake & Output 10/04/20 10/05/20 10/05/20 18:59 06:59 18:59 Other: Weight 105.7 kg [place] Weight in Grams [id number] Weight 105.7 kg Body Mass Index 31.6 - Constitutional Present: mild distress. Absent: no acute distress - Routine HEENT Exam Head: Present: normal inspection - Routine Respiratory Exam Present: CTAB - Routine Cardiovascular Exam Cardiovascular: Present: RRR, S1, S2 - Routine Abdominal Exam Present: soft. Absent: organomegaly, tenderness - Routine Extremities Exam Absent: pedal edema - Routine Back/Spine/Pelvis Exam Back/Spine: Present: CVA tenderness Progress Note: A/P (1) Left renal mass Status: Acute Assessment and plan: 1. This is a 45-year-old male presenting with left adrenal mass diagnosed in [facility] 2020 which is suspicious for renal cell carcinoma. He was diagnosed with COVID-19 infection in July 2020. A few days after this he developed fairly severe left flank pain and shortness of breath. He was diagnosed with few small subsegmental pulmonary emboli but he was also noted to have large left kidney mass in the upper pole of the left kidney measuring 7 x 4.2 x 5.3 cm. Lesion extending through perirenal fat and abuts the left hemidiaphragm posteriorly, no extension into the renal vein. No lymphadenopathy. Clinically T3 lesion. He underwent abdominal MRI on 09/10/2020 which is reported as follows- 6.6 x 5.2 x 6 cm heterogeneously enhancing mass of the upper pole of the left kidney highly suspicious for renal cell carcinoma. The mass involves the left renal hilar fat but there is no tumor thrombus in the left renal vein or inferior vena cava. No definite involvement of the left renal collecting system, better visualized on the prior CT scan 08/09/2020. There is extension of the mass posteriorly beyond the expected capsular margins of the kidney, into the left perinephric fat to abut the left diaphragm. There is no definite evidence of transmural diaphragmatic involvement but there is broad contact. Bone scan performed in August was negative for metastatic disease. Patient is in significant pain from this kidney mass. He was given refill on his tramadol and gabapentin today. His blood pressure was noted to be quite elevated. Some of this could be related to his pain however, it appears that he has underlying hypertension. His blood pressure was elevated on his prior visit as well. He denied any headache or blurry vision, chest pain or any acute symptoms. He was advised to go to the emergency room if he did develop any of this. He was also advised to follow up with his PCP in regards to starting antihypertensive medication. He has been referred to [facility], he is getting enrolled in clinical trial using neoadjuvant immunotherapy followed by surgery/nephrectomy. He has appointments lined up next week. He will now follow up with medical oncologist and urologist at [facility]. - Time Spent With Patient Total time spent is greater than 50% in coordination of care (as documented) at patient's floor/unit and/or counseling patient: 15 - 24 minutes
[2020-10-05 16:09] VITALS: BP 196/108; PULSE 106; RESP 18; TEMP 36.5; O2SAT 98
--- NOTE | 2020-10-05 16:49 | MHC.HEMONC ---
pt in for f/u with Dr Alejo. He did not have labs. BP elevated. MD aware. He said he is having pain in left posterior chest and is out od pain rx. Dr Alejo refilled gabapentin and tramadol. Pt will be following up with Specialist at [facility]
== END | disposition home or self-care (01) ==
LOC: HO.ONC 08-31 08:54
PROVIDERS: PCP Hospitalist; Referring Provider Hospitalist; Visit Provider Internal Medicine
DX: N28.89 Other specified disorders of kidney and ureter (principal); I26.94 Multiple subsegmental thrombotic pulmonary emboli without acute cor pulmonale; I10 Essential (primary) hypertension; Z79.01 Long term (current) use of anticoagulants; Z86.16 Personal history of COVID-19
CPT/HCPCS: 99204; 99214